=== PATIENT | female | born 1980 | race Caucasian/White ===

== ENCOUNTER 2019-10-29 17:41 | Emergency (ER) | payer SELFPAY | END 2019-10-29 19:31 | disposition home or self-care (01) | PROVIDERS: Family Provider Family Medicine | DX: R07.89 Other chest pain (principal); I73.9 Peripheral vascular disease, unspecified; E11.42 Type 2 diabetes mellitus with diabetic polyneuropathy; F17.210 Nicotine dependence, cigarettes, uncomplicated; Z88.0 Allergy status to penicillin; Z91.040 Latex allergy status; Z89.512 Acquired absence of left leg below knee; I10 Essential (primary) hypertension | CPT/HCPCS: 71045; 73552; 80053; 84484; 85025; 93005; 99283 ==

== ENCOUNTER 2019-11-05 15:37 | Emergency (ER) | payer MEDICAID, SELFPAY ==
[2019-11-05 16:03] VITALS: BP 113/84; PULSE 96; RESP 16; TEMP 36.9; O2SAT 97; BMI 29.1
== END 2019-11-05 19:54 | disposition home or self-care (01) ==
PROVIDERS: Emergency Provider Emergency Medicine; Family Provider Family Medicine
DX: Z53.21 Procedure and treatment not carried out due to patient leaving prior to being seen by health care provider (principal)
CPT/HCPCS: 99281

== ENCOUNTER 2019-11-07 12:34 | Emergency (ER) | payer MEDICAID, SELFPAY ==
[2019-11-07 12:59] VITALS: BP 113/85; PULSE 101; RESP 18; TEMP 36.7; O2SAT 97; BMI 30.7
--- NOTE | 2019-11-07 13:01 | ED_ITS ---
Entered by Maribel Rodriguez, acting as scribe for Jim Cyr DO HPI - Extremity Problem General: Chief complaint: Extremity Injury, Lower Stated complaint: left leg pain Time Seen by Provider: 11/07/19 13:01 Source: patient Mode of arrival: wheelchair Limitations: no limitations History of Present Illness: HPI Narrative: 39 yo f came to the er pov with family for a fall. Onset was 2 days ago. Pt states that her was pushing the wheel chair and she fell out of it. MD Complaint: extremity pain Onset (ago): day(s) (2 days ago) Pain Consistency: constant Location: left Quality: stabbing Radiation: none Relieving factors: nothing Exacerbating factors: nothing Associated symptoms: Reports chest pain; Deny fever(s) or rash Review of Systems Const: Denies: fever Eyes: Denies: change in vision or blurry vision ENMT: Denies: throat pain, oral sores/lesions, dental pain, nasal discharge or nasal congestion Card: Reports: chest pain Resp: Denies: shortness of breath, productive cough, non-productive cough or wheezing GI: Denies: abdominal pain, nausea, vomiting, vomiting blood, coffee grounds in vomit, difficulty swallowing, heartburn/indigestion, diarrhea, constipation, cramping, blood in stool or black tarry stool : Denies: flank pain, painful urination, urinary frequency, urinary urgency, urinary incontinence or blood in urine Musc: Reports: back pain and extremity pain; Denies: neck pain, extremity swelling, joint pain or joint swelling Skin/Breast: Denies: rash Neuro: Denies: headache, numbness in extremities, weakness in extremities, changes in sensation, lack of coordination, difficulty walking, frequent falls, dizziness, vertigo or confusion Psych: Reports: anxiety and depression; Denies: loss of interest, visual hallucinations, auditory hallucinations, suicidal ideation or homicidal ideation Endo: Denies: excessive urination, excessive thirst, tired all the time or cold intolerance [place]/Lymph: Denies: easy bruising, easy bleeding, petechiae, enlarged lymph nodes or tender lymph nodes PFSH ED PFSH: Statuses (acute, chronic, etc) shown below reflect problem list status as previously entered and may not be historically accurate Social History Smoking and tobacco status: current every day smoker Female Reproductive History: Date of last menstrual period: 10/22/19 Physical Exam Const: COMMON NORMALS: average body habitus, oriented x3 and alert GENERAL APPEARANCE: cooperative, comfortable, well kempt and well developed NUTRITIONAL APPEARANCE: obese ORIENTATION/CONSCIOUSNESS: Yes awake, Yes oriented to person and Yes oriented to place HENMT: COMMON NORMALS: normocephalic, head/scalp atraumatic, EAC's normal, TM's normal bilaterally, external nose normal, moist oral mucous membranes and oropharynx normal HEAD & SCALP: normocephalic and atraumatic NOSE: external nose normal EXTERNAL AUDITORY CANAL: EAC's normal TYMPANIC MEMBRANE: TM's normal bilaterally MOUTH: oral and palatal mucosa normal, lip normal and tongue normal THROAT: posterior oropharynx normal and tonsils normal Eye: COMMON NORMALS: PERRL, EOMs intact bilaterally, conjunctivae normal and no scleral icterus CONJUNCTIVA: Yes conjunctivae normal PUPIL: Yes PERRL Neck/C-Spine: COMMON NORMALS: full ROM, no lymphadenopathy, supple, no meningeal signs and thyroid normal THYROID: thyroid normal and asymmetrical Lymph: LYMPHATIC: no lymphadenopathy noted Resp: COMMON NORMALS: normal respiratory effort, no retractions, no use of accessory muscles and clear to auscultation bilaterally AUSCULTATION: clear to auscultation bilaterally Cardio: COMMON NORMALS: regular rate and regular rhythm RATE: regular rate RHYTHM: regular rhythm HEART SOUNDS: no murmurs GI: COMMON NORMALS: normal to inspection, nondistended, normoactive bowel sounds, soft to palpation and no hepatosplenomegaly PALPATION: Yes soft and Yes no hepatosplenomegaly : COMMON NORMALS: Yes no CVA tenderness BLADDER/KIDNEY EXAM: Yes no CVA tenderness Back/Pelvis: COMMON NORMALS: no CVA tenderness LUMBAR SPINE/LOWER BACK: Yes normal to inspection Extremity: COMMON NORMALS: no clubbing, cyanosis or edema, no calf tenderness and no pedal edema NARRATIVE EXTREMITY EXAM: Left leg surgically absent with an [id number] amputation. Examination of the suture line there is no dehiscence wound looks good there is no bruit bruising no abrasions there is no erythema or induration there is no active drainage from the suture line. Neuro: COMMON NORMALS: oriented x3 SENSORIUM/ORIENTATION: Yes alert, Yes oriented to person and Yes oriented to place MENINGEAL SIGNS: Yes no meningeal signs Psych: APPEARANCE: Yes well kempt Skin: COMMON NORMALS: no rashes or lesions noted and skin turgor normal GENERAL SKIN EXAM: no rashes or lesions noted and turgor normal Course Vital Signs: Vital signs: Vital Signs Temperature 98.1 F 11/07/19 12:59 Pulse Rate 87 11/07/19 14:10 Respiratory Rate 20 H 11/07/19 14:10 Blood Pressure 106/76 11/07/19 14:10 Pulse Oximetry 96 11/07/19 14:10 Discharge Plan Discharge Patient Disposition: Home, Self-Care Clinical Impression: Pain of amputation stump of left lower extremity, Hx of AKA (above knee amputation) Condition: Stable Prescriptions: New tramadol 50 mg tablet 50 mg PO Q8H PRN (Reason: pain) Qty: 10 RF: 0 Referrals: Tina Hernandez MD [Family Provider] - Discharge Diet: Usual diet Discharge Activity: Increase activity as tolerated Activity Restrictions/Additional Instructions: Follow up with your pain clinic for further pain medicaitons. Discharge Date/Time: 11/07/19 14:11 Coding Level of Care Code ED Seconds Inspector for Chg Fwd Exam Problem Focused The documentation recorded by the Michael billings Stephanie Lyn, accurately reflects the service I personally performed and the decisions made by Klarissa goldsmith Curtis L, DO Nov 07, 2019 12:34
--- NOTE | 2019-11-07 13:27 | XR_ITS ---
WS: [id number] Left thigh, 2 views of the distal femur 11/07/2019 Clinical Data: pain at stump after reported fall Comparison: Left thigh and femur, 10/29/2019 Findings: The patient has had an AK amputation. There is soft tissue edema beneath the stump. There is an area of low density inferior to the distal femoral stump which could represent a fluid collection. Possible fluid collection in soft tissue inferior to distal amputation site of the left femur. XR/XR knee LT -2V [id number] Impression:
[2019-11-07 13:38] VITALS: BP 114/83; BP 142/108; O2SAT 96; O2SAT 97
[2019-11-07 13:56] VITALS: RESP 16
[2019-11-07] MEDS: morphine 4 mg/mL SDV 1 mL 2 MG IVP (13:56)
[2019-11-07 14:10] VITALS: BP 106/76; PULSE 87; RESP 20; O2SAT 96
== END 2019-11-07 14:11 | disposition home or self-care (01) ==
PROVIDERS: Emergency Provider Family Medicine; Family Provider Family Medicine
DX: M79.605 Pain in left leg (principal); Z89.612 Acquired absence of left leg above knee; F17.210 Nicotine dependence, cigarettes, uncomplicated
CPT/HCPCS: 73560; 96375; 99281; J2270

== ENCOUNTER → 2019-11-21 13:44 | Outpatient (BNVA) | payer MEDICAID, SELFPAY | PROVIDERS: Family Provider Family Medicine; Visit Provider Anesthesiology | DX: G89.4 Chronic pain syndrome (principal); M54.5 Low back pain; M79.651 Pain in right thigh; M79.652 Pain in left thigh; M25.569 Pain in unspecified knee; S78.112A Complete traumatic amputation at level between left hip and knee, initial encounter; X58.XXXA Exposure to other specified factors, initial encounter; F17.210 Nicotine dependence, cigarettes, uncomplicated; Z79.891 Long term (current) use of opiate analgesic | CPT/HCPCS: 99204 ==

== ENCOUNTER 2019-12-05 18:02 | Emergency (ER) | payer MEDICAID, SELFPAY ==
--- NOTE | 2019-12-05 18:06 | XR_ITS ---
WS: [id number] Portable AP upright chest, 12/05/2019 Clinical Data: cp Comparison: Portable chest, 10/29/2019. Findings: No nodules, masses or effusions are seen. The heart is slightly enlarged. The pulmonary vas cularity is not increased. No pneumonia or pneumothorax is seen. XR/XR chest 1V portable [id number] Impression: Mild cardiomegaly.
--- NOTE | 2019-12-05 18:07 | ECG_ITS ---
Measurements Intervals [place] Rate: 97 P: 44 [place]: 163 QRS: 60 QRSD: 101 T: 122 QT: 373 QTc: 475 SINUS RHYTHM POSSIBLE LEFT ATRIAL ENLARGEMENT [-0.1mV P WAVE IN V1/V2] NONSPECIFIC ST & T-WAVE ABNORMALITY Compared to ECG 10/29/2019 17:52:13 Sinus tachycardia no longer present Possible ischemia no longer present T-wave abnormality still present Electronically Signed On 12-06-2019 22:14:37 DISABILITY COUNSELOR by Diamond Brenner M.D. [email or web address]
[2019-12-05 18:25] VITALS: BP 112/80; PULSE 102; RESP 18; TEMP 36.5; O2SAT 100; BMI 29.1
--- NOTE | 2019-12-05 18:26 | ED_ITS ---
Entered by Priyanka Li, acting as scribe for Jack Cotton MD HPI - Chest Pain General: Chief Complaint: Chest Pain Stated Complaint: CHEST PAIN Time Seen by Provider: 12/05/19 18:26 Source: patient and RN notes reviewed Mode of arrival: ambulatory Limitations: no limitations History of Present Illness: HPI narrative: 39 yo female presents to ED with complaints of chest pain. The patient states her chest hurts. She said she has a cough which makes her chest hurt. She said her chest pain began a week ago. MD complaint: chest pain Pertinent past history: other (healing from broken ribs) Onset (ago): week(s) (1) Timing of current episode: episodic Prior episodes: Yes Onset: other (coughing) Pain location: substernal Pain radiation: none Severity: moderate Quality: aching Relieving factors: nothing Exacerbating factors: other (coughing) Context: recent illness Associated symptoms: Reports no associated symptoms; Deny abdominal pain, dyspnea, fever(s), nausea or vomiting Treatment prior to arrival: none Risk Factors: Coronary artery disease risk factors: none Thoracic aortic dissection risk factors: none Related Data: On Oral Contraceptives: No Review of Systems Const: Denies: fever, chills, body aches or change in appetite Eyes: Denies: blurry vision or eye discomfort ENMT: Denies: throat pain or dental pain Resp: Denies: shortness of breath GI: Denies: abdominal pain, nausea, vomiting or diarrhea : Denies: painful urination Musc: Denies: neck pain or back pain Skin/Breast: Denies: rash Neuro: Denies: headache Psych: Denies: depression [place]/Lymph: Denies: easy bruising All/Imm: Denies: hives PFSH ED PFSH: Statuses (acute, chronic, etc) shown below reflect problem list status as previously entered and may not be historically accurate Medical History (Updated 12/05/19 @ 18:56 by Jack Cotton MD) 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) Chronic pain syndrome (Chronic) Current every day smoker (Chronic) Opioid contract exists (Chronic) Family History (Updated 11/21/19 @ 14:34 by Lisa Purdy LPN) Other Diabetes Social History (Updated 11/21/19 @ 14:35 by Lisa Purdy LPN) Smoking and tobacco status: current every day smoker cigarettes Packs smoked per day: 0.5 Alcohol intake: never Female Reproductive History: Date of last menstrual period: 10/22/19 Physical Exam Const: COMMON NORMALS: no apparent distress, oriented x3 and healthy appearing HENMT: COMMON NORMALS: normocephalic and head/scalp atraumatic HEAD & SCALP: normocephalic and atraumatic Eye: COMMON NORMALS: PERRL and EOMs intact bilaterally PUPIL: Yes PERRL Neck/C-Spine: COMMON NORMALS: full ROM and supple Chest: COMMONS NORMALS: inspection of chest normal OTHER: point tender to chest Resp: COMMON NORMALS: normal respiratory effort, no retractions, no use of accessory muscles and clear to auscultation bilaterally AUSCULTATION: clear to auscultation bilaterally Cardio: COMMON NORMALS: regular rate, regular rhythm and no murmurs RATE: regular rate RHYTHM: regular rhythm GI: COMMON NORMALS: normal to inspection, nondistended, normoactive bowel sounds, soft to palpation, non-tender and no masses PALPATION: Yes soft Extremity: COMMON NORMALS: normal to inspection and full ROM Neuro: COMMON NORMALS: oriented x3, moves all extremities and no focal motor deficits Psych: COMMON NORMALS: mental status grossly normal, thought process normal and cooperative THOUGHT PROCESS: normal thought process Skin: COMMON NORMALS: no rashes or lesions noted and no wounds GENERAL SKIN EXAM: no rashes or lesions noted Course Vital Signs: Vital signs: Vital Signs Temperature 97.7 F 12/05/19 18:25 Pulse Rate 99 12/05/19 19:02 Respiratory Rate 19 H 12/05/19 19:02 Blood Pressure 129/85 12/05/19 19:02 Pulse Oximetry 92 12/05/19 19:02 MDM - Chest Pain MDM Narrative: Medical decision making narrative: Patient presents here with chest pain with a cough with likely bronchitis and chest wall pain. She denied any blood work. We will start her on Keflex for possible bronchitis. Patient given steroid shot 2. She is stable for discharge and return if worsening. Imaging Data^: CXR: Attestation: I personally reviewed and interpreted this imaging study as follows: My impression: no acute abnormality EKG Data^: EKG 1: Attestation: I personally reviewed and interpreted this EKG as follows: EKG interpretation date: 12/05/19 EKG interpretation time: 18:40 Interpretation: nsr hr [address] or t wave abnormalities qrs 101 qtc 472 Discharge Plan Discharge Patient Disposition: Home, Self-Care Clinical Impression: Atypical chest pain Condition: Stable Prescriptions: New Keflex 500 mg capsule 500 mg PO Q6H 7 Days Qty: 28 RF: 0 No Action cyclobenzaprine 10 mg tablet 10 mg PO TID PRNRF: 0 gabapentin 300 mg capsule 300 mg PO TID RF: 0 alprazolam [Xanax] 1 mg tablet 1 mg PO TID PRNRF: 0 clopidogrel [Plavix] 75 mg tablet 75 mg PO QDAY RF: 0 Lantus Solostar U-100 Insulin 100 unit/mL (3 mL) insulin pen 75 unit SUBCUT .BEDTIME RF: 0 Novolog Flexpen U-100 Insulin 100 unit/mL (3 mL) insulin pen See Rx Instructions SUBCUT TID RF: 0 Combivent Respimat 20-100 mcg/actuation mist 2 puff INHALATION Q6H PRNRF: 0 albuterol sulfate 90 mcg/actuation aerosol powdr breath activated 2 inh INHALATION Q6H PRNRF: 0 tramadol 50 mg tablet 50 mg PO TID PRN (Reason: pain) 30 Days Qty: 90 RF: 0 hydrocodone-acetaminophen 7.5-325 mg tablet 1 tab PO Q6H PRN (Reason: pain) 30 Days Qty: 120 RF: 0 tramadol 50 mg tablet 50 mg PO Q8H PRN (Reason: pain) Qty: 10 RF: 0 Discharge Orders: Discharge Order (Routine); Ordered 12/05/19 Ordered By: Jack Cotton Referrals: NOT ON FILE,DOCTOR [Primary Care Provider] - Tina Hernandez MD [Family Provider] - 4-7 days Discharge Diet: Advance as tolerated Discharge Activity: Resume usual activity Patient Instructions: Chest Pain - Chest Wall Discharge Date/Time: 12/05/19 19:13 Coding Level of Care Code ED Optoelectronics Engineer for Chg Fwd Exam Problem Focused The documentation recorded by the Guillermo billings Valerie R, accurately reflects the service I personally performed and the decisions made by Yury goldsmith Korby, MD Dec 05, 2019 18:02
[2019-12-05] MEDS: HYDROcodone-acetaminophen 7.5-325 mg Tablet 1 TAB PO (18:45)
[2019-12-05 19:02] VITALS: BP 129/85; PULSE 99; RESP 19; O2SAT 92
[2019-12-05] MEDS: dexamethasone 10 mg/mL INJ IM (19:07)
--- NOTE | 2019-12-05 19:13 | PC.NURSE ---
[facility] to arrange for tranportation.
== END 2019-12-05 19:13 | disposition home or self-care (01) ==
PROVIDERS: Emergency Provider Emergency Medicine; Family Provider Family Medicine
DX: R07.89 Other chest pain (principal); G89.4 Chronic pain syndrome; F17.210 Nicotine dependence, cigarettes, uncomplicated; Z79.891 Long term (current) use of opiate analgesic
CPT/HCPCS: 71045; 93005; 96372; 99281; 99283; J1100

== ENCOUNTER → 2019-12-19 12:47 | Outpatient (BNVA) | payer MEDICAID, SELFPAY | PROVIDERS: Family Provider Family Medicine; Visit Provider Anesthesiology | DX: G89.4 Chronic pain syndrome (principal); M54.5 Low back pain; S78.112A Complete traumatic amputation at level between left hip and knee, initial encounter; X58.XXXA Exposure to other specified factors, initial encounter; F17.210 Nicotine dependence, cigarettes, uncomplicated; Z79.891 Long term (current) use of opiate analgesic | CPT/HCPCS: 99214 ==

== ENCOUNTER 2020-01-12 16:29 | Emergency (ER) | payer MEDICAID, SELFPAY ==
[2020-01-12 16:56] VITALS: BP 125/99; PULSE 108; RESP 16; TEMP 36.8; O2SAT 97; BMI 30.7
--- NOTE | 2020-01-12 17:05 | ED_ITS ---
Entered by Maribel Rodriguez, acting as scribe for Jim Cyr DO HPI - Extremity Problem General: Chief complaint: Extremity Problem,Nontraumatic Stated complaint: hip and leg pain Time Seen by Provider: 01/12/20 17:04 Source: patient Mode of arrival: wheelchair Limitations: no limitations History of Present Illness: HPI Narrative: 39 yo f came to the er pov for hip and leg pain. Onset was today. Pt states that she has been having some right hip and leg has been in pain and has been swelling. Patient has severe peripheral vascular disease previously had the left leg amputated ultimately ended up with an [id number] amputation. Now she currently has a ulcer on the pad of the right great toe which she has been seeing wound care for. Patient is extremely poor blood sugar control. Also has a strong history of noncompliance in the past. Patient denies fever sweats or chills. MD Complaint: extremity pain and extremity swelling Pain Consistency: constant Location: right Quality: aching Relieving factors: nothing Exacerbating factors: nothing Associated symptoms: Reports no associated symptoms; Deny chest pain, fever(s) or rash Review of Systems General: Reports: other (negative unless marked) Const: Denies: fever, chills, body aches, change in appetite, fatigue or malaise ENMT: Denies: throat pain, ear pain, nasal discharge or nasal congestion Card: Denies: chest pain, edema, shortness of breath on exertion or shortness of breath when lying down Resp: Denies: shortness of breath, productive cough or non-productive cough GI: Denies: abdominal pain, nausea, vomiting, vomiting blood, coffee grounds in vomit, diarrhea, constipation, bloating, blood in stool or black tarry stool : Denies: flank pain, difficulty urinating, painful urination, urinary frequency or urinary urgency Musc: Reports: redness Skin/Breast: Denies: rash or itching PFSH ED PFSH: Medical History Above knee amputation of left lower extremity Chronic pain syndrome Current every day smoker Encounter for long-term use of opiate analgesic Opioid contract exists Family History Other Diabetes Social History Smoking and tobacco status: current every day smoker cigarettes Packs smoked per day: 0.5 Alcohol intake: never Female Reproductive History: Date of last menstrual period: 10/22/19 Physical Exam Const: COMMON NORMALS: average body habitus, oriented x3 and alert NUTRITIONAL APPEARANCE: obese ORIENTATION/CONSCIOUSNESS: Yes awake, Yes tabitha ented to person and Yes oriented to place HENMT: COMMON NORMALS: normocephalic, head/scalp atraumatic, EAC's normal, TM's normal bilaterally, external nose normal, moist oral mucous membranes and oropharynx normal HEAD & SCALP: normocephalic and atraumatic NOSE: exter nal nose normal EXTERNAL AUDITORY CANAL: EAC's normal TYMPANIC MEMBRANE: TM's normal bilaterally MOUTH: oral and palatal mucosa normal, lip normal and tongue normal THROAT: posterior oropharynx normal and tonsils normal Eye: COMMON NORMALS: PERRL, EOMs intact bilaterally, conjunctivae normal and no scleral icterus CONJUNCTIVA: Yes conjunctivae normal PUPIL: Yes PERRL Neck/C-Spine: COMMON NORMALS: full ROM, no lymphadenopathy, supple, no meningeal signs and thyroid normal THYROID: thyroid normal and asymmetrical Lymph: LYMPHATIC: no lymphadenopathy noted Resp: COMMON NORMALS: normal respiratory effort, no retractions, no use of accessory muscles and clear to auscultation bilaterally AUSCULTATION: clear to auscultation bilaterally Cardio: COMMON NORMALS: regular rate and regular rhythm RATE: regular rate RHYTHM: regular rhythm HEART SOUNDS: no murmurs GI: COMMON NORMALS: normal to inspection, nondistended, normoactive bowel sounds, soft to palpation and no hepatosplenomegaly PALPATION: Yes soft and Yes no hepatosplenomegaly : COMMON NORMALS: Yes no CVA tenderness BLADDER/KIDNEY EXAM: Yes no CVA tenderness Back/Pelvis: COMMON NORMALS: no CVA tenderness LUMBAR SPINE/LOWER BACK: Yes normal to inspection Extremity: GENERAL: Yes edema (+1 right leg) RIGHT LOWER EXTREMITY: Yes f oot & digits (No active drainage dry eschar in place) Right foot and digits: Yes inspection (3mm diabetic sore) OTHER: Negative Homans sign. Neuro: COMMON NORMALS: oriented x3 SENSORIUM/ORIENTATION: Yes alert, Yes oriented to person and Yes oriented to place MENINGEAL SIGNS: Yes no meningeal signs Course ED course: Patient is pretty severe hyperglycemia was given insulin. She was rather anxious to leave on exam and is no evidence of DVT at this time. Go ahead and start her on Lasix gave her some IM Lasix will discharge home with p.o. Lasix follow-up with wound care as soon as she is able. Return if has f urther problems. Vital Signs: Vital signs: Vital Signs Temperature 98.2 F 01/12/20 16:56 Pulse Rate 108 H 01/12/20 16:56 Respiratory Rate 16 01/12/20 19:40 Blood Pressure 125/99 01/12/20 16:56 Pulse Oximetry 97 01/12/20 16:56 MDM - Extremity (Nontraumatic) Lab Data: Labs: Lab Results 01/12/20 01/12/20 01/12/20 Range/Units 17:30 17:30 17:30 WBC 6.4 (4.0-10.0) 10^3/ uL RBC 5.70 H (4.1-5.3) 10^6/u L Hgb 14.8 (11.5-15.3) g/dL Hct 44.5 (37.0-47.0) % MCV 78.1 L (81-99) fL MCH 26.0 L (28.0-34.0) pg MCHC 33.3 (30.0-36.0) g/dL RDW 13.8 (12.1-15.1) % Plt Count 276 (130-400) 10^3/c mm MPV 10.2 (7.4-10.4) fL Neut % (Auto) 59.0 % Lymph % (Auto) 32.8 % [place] % (Auto) 5.0 % Eos % (Auto) 2.0 % Baso % (Auto) 0.6 % Neut # (Auto) 3.8 (1.8-7.7) 10^3/u L Lymph # (Auto) 2.1 (0.8-4.8) 10^3/u L [place] # (Auto) 0.3 (0.2-0.9) 10^3/u L Eos # (Auto) 0.1 (0.0-0.8) 10^3/u L Baso # (Auto) 0.0 (0.0-0.1) 10^3/u L Nucleated RBC % (a uto) 0 % Nucleated RBCs # 0.0 /100WBC ESR 19 H (0-15) mm/hr Sodium 134 L (136-145) mmol/L Potassium 4.4 (3.5-5.1) mmol/L Chloride 97 L (98-107) mmol/L Carbon Dioxide 26 (22-29) mmol/L Anion Gap 15.4 (5-19) BUN 8 (6-20) mg/dL Creatinine 0.5 (0.5-0.9) mg/dL GFR Calculation 137.4 H (90-130) mL/min Glucose 508 H* (65-115) mg/dL Calculated Osmolal ity 297 H (285-295) mOsm/k g Calcium 9.5 (8.5-10.5) mg/dL Total Bilirubin 0.2 (0.15-1.2) mg/dL AST 19 (0-32) U/L ALT 20 (0-33) U/L Alkaline Phosphata se 113 H (35-105) IU/L C-Reactive Protein 15.5 H (0.0-4.9) mg/L Total Protein 6.9 (6.6-8.7) g/dL Albumin 3.6 (3.5-5.2) g/dL Globulin 3.3 (1.3-4.6) g/dL Imaging Data^: Other Xray: Radiologist's impression: [address] [address] XRay Report Signed Patient: Alina Hewitt #: [id number] : 1980Acct#:[id number] Age/Sex: 39 / FADM Date: 01/12/20 Loc: ERRoom/Bed: Attending Dr: Ordering Provider/Ordering MD: Jim Cyr DO Date of Service: 01/12/20 Procedure(s): XR foot RT min 3V* [id number] Accession Number(s): [id number] Report Number: [id number] PROCEDURE INFORMATION: Exam: XR Right Foot Complete Exam date and time: 01/12/2020 5:16 PM Age: 39 years old Clinical indication: Pain; Foot; Right; Additional info: Diabetic pressure ulcer R great toe TECHNIQUE: Imaging protocol: XR Right foot. Views: 3 or more views. COMPARISON: No relevant prior studies available. FINDINGS: Bones/joints: Normal. Soft tissues: There is a 4.7 mm metallic wire in the dorsal aspect of the foot. This density overlies the mid shaft 3rd metatarsal. This finding is visible on the lateral view measuring 6.8 mm. XR/XR foot RT min 3V* [id number] IMPRESSION: No acute bone abnormality. Metallic wire in the soft tissues in the of foot as described Dictated By:Rupert Chen Signed By:Amalia Chenigned Date/Time:01/12/201756 DD/ 55 Discharge Plan Discharge Patient Disposition: Home, Self-Care Clinical Impression: Lower extremity edema, Diabetic foot ulcer Condition: Stable Prescriptions: New Lasix 20 mg tablet 20 mg PO DAILY Qty: 10 RF: 0 No Action cyclobenzaprine 10 mg tablet 10 mg PO TID PRNRF: 0 alprazolam [Xanax] 1 mg tablet 1 mg PO TID PRNRF: 0 clopidogrel [Plavix] 75 mg tablet 75 mg PO QDAY RF: 0 Lantus Solostar U-100 Insulin 100 unit/mL (3 mL) insulin pen 75 unit SUBCUT .BEDTIME RF: 0 Novolog Flexpen U-100 Insulin 100 unit/mL (3 mL) insulin pen See Rx Instructions SUBCUT TID RF: 0 Combivent Respimat 20-100 mcg/actuation mist 2 puff INHALATION Q6H PRNRF: 0 albuterol sulfate 90 mcg/actuation aerosol powdr breath activated 2 inh INHALATION Q6H PRNRF: 0 tramadol 50 mg tablet 50 mg PO TID PRN (Reason: pain) 30 Days Qty: 90 RF: 0 gabapentin 300 mg capsule 300 mg PO TID 30 Days Qty: 90 RF: 0 hydrocodone-acetaminophen 7.5-325 mg tablet 1 tab PO QID PRN (Reason: pain) 30 Days Qty: 120 RF: 0 Discharge Orders: Discharge Order (Routine); Ordered 01/12/20 Ordered By: Jim Cyr Referrals: Tina Hernandez MD [Family Provider] - Discharge Diet: Usual diet Discharge Activity: Increase activity as tolerated Activity Restrictions/Additional Instructions: Follow-up with your doctor or wound care this coming week for the wound on the bottom of your right great toe Discharge Date/Time: 01/12/20 19:40 Coding Level of Care Code ED Rigging Supervisor for Chg Fwd Exam Comprehensive The documentation recorded by the Michael billings Stephanie Lyn, accurately reflects the service I personally performed and the decisions made by , Jim Cyr, Jan 12, 2020 16:29
--- NOTE | 2020-01-12 17:14 | XRR_ITS ---
PROCEDURE INFORMATION: Exam: XR Right Foot Complete Exam date and time: 01/12/2020 5:16 PM Age: 39 years old Clinical indication: Pain; Foot; Right; Additional info: Diabetic pressure ulcer R great toe TECHNIQUE: Imaging protocol: XR Right foot. Views: 3 or more views. COMPARISON: No relevant prior studies available. FINDINGS: Bones/joints: Normal. Soft tissues: There is a 4.7 mm metallic wire in the dorsal aspect of the foot. This density overlies the mid shaft 3rd metatarsal. This finding is visible on the lateral view measuring 6.8 mm. XR/XR foot RT min 3V* [id number] IMPRESSION: No acute bone abnormality. Metallic wire in the soft tissues in the of foot as described
[2020-01-12 17:36] LABS: Basophils % 0.6 %; Eosinophils # 0.1 10^3/uL (0.0-0.8); Hematocrit 44.5 % (37.0-47.0); Hemoglobin 14.8 g/dL (11.5-15.3); Lymphocytes # 2.1 10^3/uL (0.8-4.8); Lymphocytes % 32.8 %; Mean Corpuscular HGB Conc 33.3 g/dL (30.0-36.0); Mean Corpuscular Volume 78.1 fL (81-99); Mean Platelet Volume 10.2 fL (7.4-10.4); Monocytes # 0.3 10^3/uL (0.2-0.9); Neutrophils # 3.8 10^3/uL (1.8-7.7); Nucleated Red Blood Cells % 0 %; Platelet Count 276 10^3/cmm (130-400); Red Cell Distribution Width 13.8 % (12.1-15.1); White Blood Count 6.4 10^3/uL (4.0-10.0)
[2020-01-12 17:49] LABS: Alanine Aminotransferase 20 U/L (0-33); Albumin Level 3.6 g/dL (3.5-5.2); Alkaline Phosphatase 113 IU/L (35-105); Anion Gap 15.4 (5-19); Aspartate Amino Transferase 19 U/L (0-32); Blood Urea Nitrogen 8 mg/dL (6-20); C Reactive Protein 15.5 mg/L (0.0-4.9); Calcium 9.5 mg/dL (8.5-10.5); Carbon Dioxide 26 mmol/L (22-29); Chloride 97 mmol/L (98-107); Globulin 3.3 g/dL (1.3-4.6); Glomerular Filtration Rate 137.4 mL/min (90-130); Osmolality Calculated 297 mOsm/kg (285-295); Potassium 4.4 mmol/L (3.5-5.1); Sodium 134 mmol/L (136-145); Total Bilirubin 0.2 mg/dL (0.15-1.2); Total Protein 6.9 g/dL (6.6-8.7)
[2020-01-12 18:08] LABS: Glucose 508 mg/dL (65-115)
[2020-01-12 18:37] LABS: Erythrocyte Sedimentation Rate 19 mm/hr (0-15)
--- NOTE | 2020-01-12 19:01 | PC.NURSE ---
report received from charge nurse due to day shift nurse not wanting to give report to night nurse.
--- NOTE | 2020-01-12 19:01 | PC.NURSE ---
report received from charge nurse due to day shift nurse not wanting to give report to night nurse.
[2020-01-12 19:40] VITALS: RESP 16
--- NOTE | 2020-01-12 19:41 | PC.NURSE ---
patient refused insulin from nurse
== END 2020-01-12 19:40 | disposition home or self-care (01) ==
PROVIDERS: Emergency Provider Family Medicine; Family Provider Family Medicine
DX: R60.0 Localized edema (principal); E11.621 Type 2 diabetes mellitus with foot ulcer; E11.51 Type 2 diabetes mellitus with diabetic peripheral angiopathy without gangrene; L97.519 Non-pressure chronic ulcer of other part of right foot with unspecified severity; E11.65 Type 2 diabetes mellitus with hyperglycemia; E66.9 Obesity, unspecified; Z68.30 Body mass index [BMI] 30.0-30.9, adult; F17.210 Nicotine dependence, cigarettes, uncomplicated; Z79.4 Long term (current) use of insulin; Z89.612 Acquired absence of left leg above knee
CPT/HCPCS: 12345; 73630; 80053; 85025; 85651; 86140; 99281; 99283

== ENCOUNTER → 2020-01-16 12:53 | Outpatient (BNVA) | payer MEDICAID, SELFPAY | PROVIDERS: Family Provider Family Medicine; Visit Provider Anesthesiology | DX: G89.4 Chronic pain syndrome (principal); S78.112A Complete traumatic amputation at level between left hip and knee, initial encounter; X58.XXXA Exposure to other specified factors, initial encounter; F17.210 Nicotine dependence, cigarettes, uncomplicated; Z79.891 Long term (current) use of opiate analgesic | CPT/HCPCS: 99213; 99214 ==

== ENCOUNTER 2020-03-12 13:59 | Emergency (ER) | payer MEDICAID, SELFPAY ==
[2020-03-12 14:05] VITALS: BP 131/82; PULSE 101; RESP 17; TEMP 36.4; O2SAT 97; BMI 29.1
--- NOTE | 2020-03-12 16:26 | ED_ITS ---
HPI - Extremity Problem General: Chief complaint: Extremity Injury, Lower Stated complaint: leg pain Time Seen by Provider: 03/12/20 16:26 History of Present Illness: HPI Narrative: Patient is a 39-year-old female who comes to the ED with right lower extremity pain and swelling. Patient has a past medical history of osteomyelitis with left leg [id number] amputation. Pain and swelling started about a week ago. She denies any injury to cause pain and swelling. She has a couple open sores that drained pus that are located on the anterior side of the right tibia. She does not know how the sores started but says they are painful. She says her pain in her leg is rated a 9 out of 10. Denies any fever or chills, nausea/vomiting, bladder or bowel symptoms. Associated symptoms: Deny chest pain, fever(s) or rash Review of Systems Const: Denies: fever(s), chills or fatigue Eyes: Denies: change in vision or eye discomfort ENMT: Denies: throat pain, odynophagia, nasal discharge or nasal congestion Card: Denies: chest pain, palpitations, edema, swelling of feet/ankles, dyspnea on exertion or orthopnea Resp: Denies: dyspnea, productive cough or non-productive cough GI: Denies: abdominal pain, nausea, vomiting, diarrhea, constipation or hematochezia : Denies: flank pain, dysuria or hematuria Musc: Reports: extremity pain (Right lower leg) and extremity swelling (right lower leg); Denies: neck pain or back pain Skin/Breast: Denies: rash or new lesions Neuro: Denies: headache(s), numbness in extremities or weakness in extremities [facility] ED PFSH: Medical History Above knee amputation of left lower extremity Chronic pain syndrome Current every day smoker Encounter for long-term use of opiate analgesic Opioid contract exists Family History Other Diabetes Social History Smoking and tobacco status: current every day smoker cigarettes Packs smoked per day: 0.5 [ Other cigarette details: 1 pck every 2-3 days-on chantix ] Alcohol intake: never Female Reproductive History: Date of last menstrual period: 12/24/19 Physical Exam Const: COMMON NORMALS: patient oriented x3 HENMT: COMMON NORMALS: normocephalic HEAD & SCALP: normocephalic MOUTH: Normal oral and palatal mucosa present THROAT: posterior oropharynx normal and uvula midline Neck/C-Spine: COMMON NORMALS: supple GENERAL: Yes normal visual inspection Resp: COMMON NORMALS: normal respiratory effort, No retractions, No use of accessory muscles and clear to auscultation bilaterally AUSCULTATION: clear to auscultation bilaterally Cardio: COMMON NORMALS: regular rate, regular rhythm, S1 normal heart sound present, S2 normal heart sound present, No gallops present (Cardio), No clicks present (Cardio), No murmurs present (Cardio) and Peripheral pulses 2+ throughout RATE: regular rate RHYTHM: regular rhythm HEART SOUNDS: S1 normal heart sound present and S2 normal heart sound present PERIPHERAL PULSES: Peripheral pulses 2+ throughout GI: COMMON NORMALS: Normal to inspection, nondistended, normoactive bowel sounds present, Soft to palpation, non-tender and no masses PALPATION: Yes Soft to palpation : COMMON NORMALS: Yes no CVA tenderness BLADDER/KIDNEY EXAM: Yes no CVA tenderness Back/Pelvis: COMMON NORMALS: no CVA tenderness Extremity: GENERAL: Yes amputation (Left leg above the knee) and Yes edema (Right extremity) RIGHT LOWER EXTREMITY: Yes lower leg Right lower leg: Yes inspection (erythema, warmth with open sores on anterior sanz. purulent drainage.), Yes palpation (tender upon palpation) and Yes neurovascular exam (intact) Neuro: COMMON NORMALS: patient oriented x3 and moves all extremities Skin: LESIONS: lesion noted (See Right Lower Extremity section for details.) OTHER: Patient has open sores with purulent drainage, tenderness, erythema and warmth on anterior aspect of sanz. Course Vital Signs: Vital signs: Vital Signs Temperature 97.6 F 03/12/20 14:05 Pulse Rate 101 H 03/12/20 14:05 Respiratory Rate 17 03/12/20 14:05 Blood Pressure 131/82 03/12/20 14:05 Pulse Oximetry 97 03/12/20 14:05 MDM - Extremity (Nontraumatic) MDM Narrative: Medical decision making narrative: Pt left AMA. She left before I was able to get labs, diagnosis and discharge plan worked up. Discharge Plan Discharge Patient Disposition: Left Against Medical Advice Prescriptions: No Action Levemir FlexTouch U-100 Insuln 100 unit/mL (3 mL) insulin pen 100 unit SUBCUT DAILY RF: 0 Toujeo Max U-300 SoloStar 300 unit/mL (3 mL) insulin pen 30 unit SUBCUT DAILY RF: 0 Chantix 1 mg tablet 1 mg PO ONCE RF: 0 cyclobenzaprine 10 mg tablet 10 mg PO TID PRNRF: 0 clopidogrel [Plavix] 75 mg tablet 75 mg PO QDAY RF: 0 Combivent Respimat 20-100 mcg/actuation mist 2 puff INHALATION Q6H PRNRF: 0 albuterol sulfate 90 mcg/actuation aerosol powdr breath activated 2 inh INHALATION Q6H PRNRF: 0 hydrocodone-acetaminophen 7.5-325 mg tablet 1 tab PO QID PRN (Reason: pain) 30 Days Qty: 120 RF: 0 tramadol 50 mg tablet 50 mg PO TID PRN (Reason: pain) 30 Days Qty: 90 RF: 1 gabapentin 600 mg tablet 600 mg PO TID PRN (Reason: pain) 30 Days Qty: 90 RF: 1 Lasix 20 mg tablet 20 mg PO DAILY Qty: 10 RF: 0 Referrals: Tina Hernandez MD [Primary Care Provider] - Discharge Date/Time: 03/12/20 17:00 Coding Level of Care Code ED [employer] for [employer]g Fwd Exam Comprehensive
--- NOTE | 2020-03-12 17:03 | PC.NURSE ---
nurse went into room to assess pt and tell her i'm bringing her pain medication. Pt not found in room
== END 2020-03-12 17:00 | disposition left against medical advice (07) ==
PROVIDERS: Emergency Provider Physician Assistant; PCP Family Medicine
DX: M79.604 Pain in right leg (principal); Z53.21 Procedure and treatment not carried out due to patient leaving prior to being seen by health care provider; Z79.4 Long term (current) use of insulin; Z79.02 Long term (current) use of antithrombotics/antiplatelets; F17.210 Nicotine dependence, cigarettes, uncomplicated
CPT/HCPCS: 12345; 99281

== ENCOUNTER → 2020-03-17 09:58 | Outpatient (BNVA) | payer MEDICAID, SELFPAY | PROVIDERS: PCP Family Medicine; Visit Provider Anesthesiology | DX: G89.4 Chronic pain syndrome (principal); M54.9 Dorsalgia, unspecified; S78.112A Complete traumatic amputation at level between left hip and knee, initial encounter; X58.XXXA Exposure to other specified factors, initial encounter; F17.210 Nicotine dependence, cigarettes, uncomplicated; Z79.891 Long term (current) use of opiate analgesic; Z71.6 Tobacco abuse counseling | CPT/HCPCS: 99214 ==

== ENCOUNTER → 2020-04-07 10:09 | Outpatient (BNVA) | payer MEDICAID, SELFPAY | PROVIDERS: PCP Family Medicine; Visit Provider Anesthesiology | DX: G89.4 Chronic pain syndrome (principal); M54.9 Dorsalgia, unspecified; S78.112A Complete traumatic amputation at level between left hip and knee, initial encounter; X58.XXXA Exposure to other specified factors, initial encounter; F17.210 Nicotine dependence, cigarettes, uncomplicated; Z79.891 Long term (current) use of opiate analgesic; Z71.6 Tobacco abuse counseling | CPT/HCPCS: 99214 ==

== ENCOUNTER 2020-04-20 00:30 | Emergency (ER) | payer MEDICAID, SELFPAY ==
[2020-04-20 00:40] VITALS: BP 127/83; PULSE 97; RESP 16; TEMP 36.8; O2SAT 97; BMI 29.1
--- NOTE | 2020-04-29 15:23 | DCPLANNER ---
Patient did not attend appointment scheduled for 04.21.20 with Wound Care.
== END 2020-04-20 01:37 ==
PROVIDERS: Emergency Provider Emergency Medicine; PCP Family Medicine
DX: Z53.21 Procedure and treatment not carried out due to patient leaving prior to being seen by health care provider (principal)
CPT/HCPCS: 99281

== ENCOUNTER 2020-04-20 01:42 | Emergency (ER) | payer MEDICAID, SELFPAY ==
[2020-04-20] VITALS (10 sets, daily range): BP systolic 129–138; BP diastolic 75–87; PULSE 97; RESP 16; TEMP 36.8; O2SAT 96–99; BMI 29.1
--- NOTE | 2020-04-20 02:06 | W.ED.EXTPRO ---
HPI - Extremity Problem General: Chief complaint: Extremity Injury, Lower Stated complaint: leg pain Time Seen by Provider: 04/20/20 01:49 History of Present Illness: HPI Narrative: Patient is a 39-year-old female who comes to the ED with right lower extremity pain and possible infection. Patient has a past medical history of diabetes and diabetic neuropathy. She also has an [id number] amputation of the left lower extremity due to osteomyelitis. Patient's right leg has multiple open sores on the front of her sanz and patient also has an ulcer on heel of foot. Patient says both started about a week ago. She says the wounds on the sanz started as a little blister that popped and she keeps having more popping up every couple days. She says that they use clear fluid. Patient also says her ulcer on heel right foot started about a week ago as well and looked just like a blister and then it popped and then the skin became dark. She rates her current right leg pain a 7 out of 10. Patient has hydrocodone 7.5 mg and 50 mg of tramadol that she takes for pain. She says that those have not helped her pain. Associated symptoms: Deny chest pain, fever(s) or rash Review of Systems Const: Denies: fever(s), chills or fatigue Eyes: Denies: change in vision or eye discomfort ENMT: Denies: throat pain, odynophagia, nasal discharge or nasal congestion Card: Denies: chest pain, palpitations, edema, swelling of feet/ankles, dyspnea on exertion or orthopnea Resp: Denies: dyspnea, productive cough or non-productive cough GI: Denies: abdominal pain, nausea, vomiting, diarrhea, constipation or hematochezia : Denies: flank pain, dysuria or hematuria Musc: Denies: neck pain, back pain or extremity swelling Skin/Breast: Reports: new lesions (Ulcer on heel right foot and open sores like blisters on front part of right lower leg.); Denies: rash Neuro: Denies: headache(s), numbness in extremities or weakness in extremities [facility] PFSH: Medical History Above knee amputation of left lower extremity Chronic pain syndrome Current every day smoker Encounter for long-term use of opiate analgesic Opioid contract exists Family History Other Diabetes Social History Smoking and tobacco status: current every day smoker cigarettes Packs smoked per day: 0.5 Alcohol intake: never Female Reproductive History: Date of last menstrual period: 04/20/20 Physical Exam Const: COMMON NORMALS: patient oriented x3 and alert GENERAL APPEARANCE: cooperative and comfortable HENMT: COMMON NORMALS: normocephalic HEAD & SCALP: normocephalic MOUTH: Normal oral and palatal mucosa present THROAT: posterior oropharynx normal and uvula midline Eye: COMMON NORMALS: Equal, round and reactive pupils present PUPIL: Yes Equal, round and reactive pupils present Neck/C-Spine: COMMON NORMALS: supple GENERAL: Yes normal visual inspection Resp: COMMON NORMALS: normal respiratory effort, No retractions, No use of accessory muscles and clear to auscultation bilaterally AUSCULTATION: clear to auscultation bilaterally Cardio: COMMON NORMALS: regular rate, regular rhythm, S1 normal heart sound present, S2 normal heart sound present, No gallops present (Cardio), No clicks present (Cardio), No murmurs present (Cardio) and Peripheral pulses 2+ throughout RATE: regular rate RHYTHM: regular rhythm HEART SOUNDS: S1 normal heart sound present and S2 normal heart sound present PERIPHERAL PULSES: Peripheral pulses 2+ throughout GI: COMMON NORMALS: Normal to inspection, nondistended, normoactive bowel sounds present, Soft to palpation, non-tender and no masses PALPATION: Yes Soft to palpation : COMMON NORMALS: Yes no CVA tenderness BLADDER/KIDNEY EXAM: Yes no CVA tenderness Back/Pelvis: COMMON NORMALS: no CVA tenderness Extremity: NARRATIVE EXTREMITY EXAM: On patient's right heel she appears to have what once was a blister but then popped and callused over. He surface of the ulcer is thick and and black. There is some warmth and erythema surrounding it. On patient's right lower leg she has multiple open sores on the anterior aspect of lower leg. They have surrounding erythema and appear to have some clear drainage. He will ulcer and the open sores are tender upon palpation. GENERAL: Yes amputation (Patient's left leg has a [id number] amputation.) Neuro: COMMON NORMALS: patient oriented x3 and moves all extremities SENSORIUM/ORIENTATION: Yes alert Skin: GENERAL SKIN EXAM: dry skin Course Vital Signs: Vital signs: Vital Signs Temperature 98.3 F 04/20/20 01:57 Pulse Rate 97 04/20/20 01:57 Respiratory Rate 16 04/20/20 01:57 Blood Pressure 129/78 04/20/20 02:25 Pulse Oximetry 96 04/20/20 02:45 MDM - Extremity (Nontraumatic) MDM Narrative: Medical decision making narrative: Patient is a 39-year-old female with a past medical history of diabetes, diabetic neuropathy and [id number]-[id number] amputation of left leg due to osteomyelitis. She presents presents to the ED with diabetic ulcer on the heel of right foot and some superficial sores on the right sanz that are oozing clear fluid. White blood cells 7.5. ESR 51, CRP 36.8. X-ray of right foot showed no signs of osteomyelitis or acute fractures. Patient was diagnosed with diabetic ulcer of the right heel and infective dermatitis. She was given a dose of Bactrim while here in the ED and sent home with a prescription for Bactrim. I placed a referral to case management for patient to see wound clinic. Patient understood and agreed with plan. Lab Data: Attestation: I reviewed the patient's lab results. Labs: Lab Results 04/20/20 04/20/20 04/20/20 Range/Units 02:30 02:30 02:33 WBC 7.5 (4.0-10.0) 10^3/ uL RBC 5.29 (4.1-5.3) 10^6/u L Hgb 14.8 (11.5-15.3) g/dL Hct 44.6 (37.0-47.0) % MCV 84.3 (81-99) fL MCH 28.0 (28.0-34.0) pg MCHC 33.2 (30.0-36.0) g/dL RDW 12.9 (12.1-15.1) % Plt Count 322 (130-400) 10^3/c mm MPV 10.3 (7.4-10.4) fL Neut % (Auto) 53.7 % Lymph % (Auto) 36.9 % [place] % (Auto) 5.1 % Eos % (Auto) 2.4 % Baso % (Auto) 0.8 % Neut # (Auto) 4.0 (1.8-7.7) 10^3/u L Lymph # (Auto) 2.8 (0.8-4.8) 10^3/u L [place] # (Auto) 0.4 (0.2-0.9) 10^3/u L Eos # (Auto) 0.2 (0.0-0.8) 10^3/u L Baso # (Auto) 0.1 (0.0-0.1) 10^3/u L Nucleated RBC % (a uto) 0 % Nucleated RBCs # 0.0 /100WBC ESR 51 H (0-15) mm/hr Sodium 133 L (136-145) mmol/L Potassium 4.2 (3.5-5.1) mmol/L Chloride 94 L (98-107) mmol/L Carbon Dioxide 25 (22-29) mmol/L Anion Gap 18.2 (5-19) BUN 14 (6-20) mg/dL Creatinine 0.7 (0.5-0.9) mg/dL GFR Calculation 93.2 (90-130) mL/min Glucose 486 H (65-115) mg/dL Calculated Osmolal ity 294 (285-295) mOsm/k g Calcium 9.5 (8.5-10.5) mg/dL Total Bilirubin 0.2 (0.15-1.2) mg/dL AST 18 (0-32) U/L ALT 21 (0-33) U/L Alkaline Phosphata se 114 H (35-105) IU/L C-Reactive Protein 36.8 H (0.0-4.9) mg/L Total Protein 6.9 (6.6-8.7) g/dL Albumin 3.8 (3.5-5.2) g/dL Globulin 3.1 (1.3-4.6) g/dL Imaging Data^: Xray Ortho: Attestation: I personally reviewed and interpreted this imaging study as follows: My impression: Right foot x-ray showed no signs of osteomyelitis and no acute fractures. Pending final radiology report. Discharge Plan Discharge Patient Disposition: Home, Self-Care Clinical Impression: Infective dermatitis Diabetic foot ulcer Qualifiers: Diabetic foot ulcer location: heel Diabetes mellitus type: type 2 Laterality: right Non-pressure ulcer stage: limited to breakdown of skin Qualified Code(s): E11.621 - Type 2 diabetes mellitus with foot ulcer Condition: Stable Prescriptions: New Bactrim DS 800-160 mg tablet 1 tab PO BID 10 Days Qty: 20 RF: 0 No Action Levemir FlexTouch U-100 Insuln 100 unit/mL (3 mL) insulin pen 100 unit SUBCUT DAILY RF: 0 Toujeo Max U-300 SoloStar 300 unit/mL (3 mL) insulin pen 30 unit SUBCUT DAILY RF: 0 hydrocodone-acetaminophen 7.5-325 mg tablet 1 tab PO QID PRN (Reason: pain) 30 Days Qty: 120 RF: 0 hydrocodone-acetaminophen 7.5-325 mg tablet 1 tab PO QID PRN (Reason: pain) 30 Days Qty: 120 RF: 0 tramadol 50 mg tablet 50 mg PO TID PRN (Reason: pain) 30 Days Qty: 90 RF: 0 gabapentin 600 mg tablet 600 mg PO TID PRN (Reason: pain) 30 Days Qty: 90 RF: 1 cyclobenzaprine 10 mg tablet 10 mg PO TID PRNRF: 0 clopidogrel [Plavix] 75 mg tablet 75 mg PO QDAY RF: 0 Combivent Respimat 20-100 mcg/actuation mist 2 puff INHALATION Q6H PRNRF: 0 albuterol sulfate 90 mcg/actuation aerosol powdr breath activated 2 inh INHALATION Q6H PRNRF: 0 Discharge Orders: Discharge Order (Routine); Ordered 04/20/20 Ordered By: Be Kim Referrals: Tina Hernandez MD [Primary Care Provider] - Discharge Diet: Regular Discharge Activity: Increase activity as tolerated Patient Instructions: Dermatitis (Contact), Diabetic Foot Ulcers (ED) Activity Restrictions/Additional Instructions: Take full course of antibiotic as prescribed. I placed a referral for you to wound clinic. Someone should be contacting you in the next several days to set up an appointment. Continue taking all home meds including your previously prescribed medications for pain. You can return to the ED for reevaluation if symptoms worsen. Discharge Date/Time: 04/20/20 02:52 Coding Level of Care Code ED [employer] for Ember Fwd Exam Comprehensive
--- NOTE | 2020-04-20 02:21 | XR_ITS ---
WS: [id number] RIGHT FOOT: 2 VIEW(S) TECHNIQUE: AP and lateral. HISTORY: Ulcer on heel possible infection. COMPARISON: 01/12/2020 No acute fracture or dislocation. Normal tarsal/metatarsal alignment. Soft tissue ulceration measuring 10 mm along the plantar surface of the hindfoot. There is also small spur at the Achilles tendon attachment. No destruction of the bone. Again noted is a foreign body wh ich projects over the mid third metatarsal. XR/XR foot RT 2V [id number] IMPRESSION: Soft tissue ulceration along the plantar surface of the hindfoot with no eviden ce for osteomyelitis.
[2020-04-20] MEDS: sulfamethoxazole-trimeth DS 160-800 mg Tablet 1 TAB PO (02:32)
[2020-04-20] MEDS: morphine 4 mg/mL SDV 1 mL IM (02:32)
[2020-04-20 02:44] LABS: Basophils # 0.1 10^3/uL (0.0-0.1); Basophils % 0.8 %; Eosinophils # 0.2 10^3/uL (0.0-0.8); Eosinophils % 2.4 %; Hematocrit 44.6 % (37.0-47.0); Hemoglobin 14.8 g/dL (11.5-15.3); Lymphocytes # 2.8 10^3/uL (0.8-4.8); Lymphocytes % 36.9 %; Mean Corpuscular HGB Conc 33.2 g/dL (30.0-36.0); Mean Corpuscular Volume 84.3 fL (81-99); Mean Platelet Volume 10.3 fL (7.4-10.4); Monocytes # 0.4 10^3/uL (0.2-0.9); Monocytes % 5.1 %; Neutrophils % 53.7 %; Nucleated Red Blood Cells % 0 %; Platelet Count 322 10^3/cmm (130-400); Red Blood Count 5.29 10^6/uL (4.1-5.3); Red Cell Distribution Width 12.9 % (12.1-15.1); White Blood Count 7.5 10^3/uL (4.0-10.0)
[2020-04-20 03:02] LABS: Alanine Aminotransferase 21 U/L (0-33); Albumin Level 3.8 g/dL (3.5-5.2); Alkaline Phosphatase 114 IU/L (35-105); Anion Gap 18.2 (5-19); Aspartate Amino Transferase 18 U/L (0-32); Blood Urea Nitrogen 14 mg/dL (6-20); Calcium 9.5 mg/dL (8.5-10.5); Carbon Dioxide 25 mmol/L (22-29); Chloride 94 mmol/L (98-107); Globulin 3.1 g/dL (1.3-4.6); Glomerular Filtration Rate 93.2 mL/min (90-130); Glucose 486 mg/dL (65-115); Osmolality Calculated 294 mOsm/kg (285-295); Potassium 4.2 mmol/L (3.5-5.1); Sodium 133 mmol/L (136-145); Total Bilirubin 0.2 mg/dL (0.15-1.2); Total Protein 6.9 g/dL (6.6-8.7)
[2020-04-20 03:14] LABS: C Reactive Protein 36.8 mg/L (0.0-4.9)
[2020-04-20 03:25] LABS: Erythrocyte Sedimentation Rate 51 mm/hr (0-15)
--- NOTE | 2020-04-20 08:22 | DCPLANNER ---
baccarat manager had a message to schedule a follow up appointment for patient with Wound Care. baccarat manager called the Wound Care clinic, spoke with Julieth, gave clinic patients information. A follow up appointment is scheduled for Tuesday, April 21, 2020 at 10:[address] Parra. Clinic will call patient with appointment information.
== END 2020-04-20 02:52 | disposition home or self-care (01) ==
PROVIDERS: Emergency Provider Physician Assistant; PCP Family Medicine
DX: E11.621 Type 2 diabetes mellitus with foot ulcer (principal); L97.411 Non-pressure chronic ulcer of right heel and midfoot limited to breakdown of skin; Z79.4 Long term (current) use of insulin; L30.3 Infective dermatitis; Z89.612 Acquired absence of left leg above knee; F17.210 Nicotine dependence, cigarettes, uncomplicated
CPT/HCPCS: 12345; 73620; 80053; 85025; 85651; 86140; 87040; 96374; 99282; 99283; J2270

== ENCOUNTER 2020-05-08 00:15 | Emergency (ER) | payer MEDICAID, SELFPAY ==
[2020-05-08 00:18] VITALS: BP 139/94; PULSE 104; RESP 18; TEMP 36.8; O2SAT 97; BMI 29.1
[2020-05-08 01:21] LABS: Basophils # 0.1 10^3/uL (0.0-0.1); Basophils % 0.7 %; Eosinophils # 0.2 10^3/uL (0.0-0.8); Eosinophils % 2.7 %; Hematocrit 44.9 % (37.0-47.0); Hemoglobin 14.9 g/dL (11.5-15.3); Lymphocytes # 2.3 10^3/uL (0.8-4.8); Lymphocytes % 33.3 %; Mean Corpuscular HGB Conc 33.2 g/dL (30.0-36.0); Mean Corpuscular Hemoglobin 27.5 pg (28.0-34.0); Mean Corpuscular Volume 82.8 fL (81-99); Mean Platelet Volume 10.7 fL (7.4-10.4); Monocytes # 0.4 10^3/uL (0.2-0.9); Monocytes % 6.2 %; Neutrophils # 3.82 10^3/uL (1.8-7.7); Neutrophils % 56.4 %; Nucleated Red Blood Cells % 0 %; Platelet Count 286 10^3/cmm (130-400); Red Blood Count 5.42 10^6/uL (4.1-5.3); Red Cell Distribution Width 12.5 % (12.1-15.1); White Blood Count 6.8 10^3/uL (4.0-10.0)
[2020-05-08 01:31] LABS: Alanine Aminotransferase 21 U/L (0-33); Albumin Level 3.8 g/dL (3.5-5.2); Alkaline Phosphatase 110 IU/L (35-105); Anion Gap 17.4 (5-19); Aspartate Amino Transferase 18 U/L (0-32); Blood Urea Nitrogen 11 mg/dL (6-20); Calcium 9.3 mg/dL (8.5-10.5); Carbon Dioxide 24 mmol/L (22-29); Chloride 92 mmol/L (98-107); Glomerular Filtration Rate 111.3 mL/min (90-130); Osmolality Calculated 293 mOsm/kg (285-295); Potassium 4.4 mmol/L (3.5-5.1); Sodium 129 mmol/L (136-145); Total Bilirubin 0.2 mg/dL (0.15-1.2); Total Protein 6.8 g/dL (6.6-8.7)
[2020-05-08 01:32] LABS: Lactic Sepsis W/Reflex 3.7 mmol/L (0.5-2.2)
[2020-05-08 01:40] LABS: Glucose 616 mg/dL (65-115)
--- NOTE | 2020-05-08 01:50 | PC.NURSE ---
advised Dr. Corona of critical glucose of 616 per lab. no orders given at this time
--- NOTE | 2020-05-08 02:21 | W.ED.EXTPRO ---
HPI - Extremity Problem General: Chief complaint: Extremity Injury, Lower Stated complaint: nontraumtic leg pain Time Seen by Provider: 05/08/20 02:21 History of Present Illness: HPI Narrative: Patient is a 39-year-old female comes to the ED with right lower extremity pain and possible infection. 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 Patient was seen here in the ED for same complaint on April 20. She was discharged and a referral was made for patient to see wound clinic and she was put on Bactrim. Patient missed wound clinic appointment and now rescheduled for May 16. Patient says she took full course of Bactrim and there was no improvement. She says the pain and sores on leg have gotten worse. She describes the pain as a sharp deep pain in the right lower leg. She rates it an 8 out of 10 currently. Denies any fever or chills, nausea or vomiting. Patient did say she has not been taking her diabetes medications. Associated symptoms: Deny chest pain, fever(s) or rash Review of Systems Const: Denies: fever(s), chills or fatigue Eyes: Denies: change in vision or eye discomfort ENMT: Denies: throat pain, odynophagia, nasal discharge or nasal congestion Card: Denies: chest pain, palpitations, edema, swelling of feet/ankles, dyspnea on exertion or orthopnea Resp: Denies: dyspnea, productive cough or non-productive cough GI: Denies: abdominal pain, nausea, vomiting, diarrhea, constipation or hematochezia : Denies: flank pain, dysuria or hematuria Musc: Reports: extremity pain (Right lower extremity pain); Denies: neck pain, back pain or extremity swelling Skin/Breast: Reports: new lesions; Denies: rash Neuro: Denies: headache(s), numbness in extremities or weakness in extremities PFS ED PFSH: Medical History Above knee amputation of left lower extremity Chronic pain syndrome Current every day smoker Encounter for long-term use of opiate analgesic Opioid contract exists Family History Other Diabetes Social History Smoking and tobacco status: current every day smoker cigarettes Packs smoked per day: 0.5 Alcohol intake: never Female Reproductive History: Date of last menstrual period: 04/20/20 Physical Exam Const: COMMON NORMALS: no acute distress, patient oriented x3 and alert GENERAL APPEARANCE: cooperative and comfortable HENMT: COMMON NORMALS: normocephalic HEAD & SCALP: normocephalic MOUTH: Normal oral and palatal mucosa present THROAT: posterior oropharynx normal and uvula midline Eye: COMMON NORMALS: Equal, round and reactive pupils present PUPIL: Yes Equal, round and reactive pupils present Neck/C-Spine: COMMON NORMALS: supple GENERAL: Yes normal visual inspection Resp: COMMON NORMALS: normal respiratory effort, No retractions, No use of accessory muscles and clear to auscultation bilaterally AUSCULTATION: clear to auscultation bilaterally Cardio: COMMON NORMALS: regular rate, regular rhythm, S1 normal heart sound present, S2 normal heart sound present, No gallops present (Cardio), No clicks present (Cardio) and No murmurs present (Cardio) RATE: regular rate RHYTHM: regular rhythm HEART SOUNDS: S1 normal heart sound present and S2 normal heart sound present PERIPHERAL PULSES: radial pulses present positive bilateral 2+ GI: COMMON NORMALS: Normal to inspection, nondistended, normoactive bowel sounds present, Soft to palpation, non-tender and no masses PALPATION: Yes Soft to palpation : COMMON NORMALS: Yes no CVA tenderness BLADDER/KIDNEY EXAM: Yes no CVA tenderness Back/Pelvis: COMMON NORMALS: no CVA tenderness Extremity: NARRATIVE EXTREMITY EXAM: Patient has multiple ulcerations on the skin of the anterior side of the lower leg. There is surrounding erythema and warmth. Surface of ulcers are white/yellow color. Size of ulcers are circular and approximately 0.5-1cm in size. 1 ulcer is irregularly shaped and larger. Right lower extremity is tender to palpation around ulcers and erythema. This appears to be advancing cellulitis. Patient also has a possible superficial ulcer to right heel. There is no surrounding erythema or warmth around heel ulcer. Pedal pulse 1+. GENERAL: Yes normal exam except as noted and Yes amputation (Left [id number] amputation.) Neuro: COMMON NORMALS: patient oriented x3 and moves all extremities SENSORIUM/ORIENTATION: Yes alert Skin: NARRATIVE SKIN EXAM: Detail of lesions discussed in extremity section of exam. GENERAL SKIN EXAM: dry skin Course Vital Signs: Vital signs: Vital Signs Temperature 98.2 F 05/08/20 00:18 Pulse Rate 94 05/08/20 05:20 Respiratory Rate 18 05/08/20 05:20 Blood Pressure 127/91 05/08/20 05:20 Pulse Oximetry 97 05/08/20 05:20 MDM - Extremity (Nontraumatic) MDM Narrative: Medical decision making narrative: Patient is a 39-year-old female with a past medical history of type 2 diabetes and left [id number] amputation due osteomyelitis. I saw patient here in the ED on April 20 for same complaint and diagnosed her with cellulitis and put on a prescription of Bactrim and a wound care clinic referral was placed for her. Patient missed her wound care clinic appointment and has it rescheduled for next week. Today the cellulitis has gotten worse. White blood cells 6.8, sodium 129, blood glucose 616. Lactate 3.7, ESR 37 and CRP 18.7. X-rays of the right tibia and right foot showed no acute findings or signs of osteomyelitis. I discussed patient's case with Dr. Berger and he wanted patient to be admitted. Patient was put on IV vancomycin while here in the ED. Patient was set to be admitted, but then she refused to be admitted and signed out AMA. Patient did sign AMA form. She was given a prescription of cephalexin and Bactrim before she left. Lab Data: Attestation: I reviewed the patient's lab results. Labs: Lab Results 05/08/20 05/08/20 05/08/20 Range/Units 01:11 01:11 01:11 WBC 6.8 (4.0-10.0) 10^3/ uL RBC 5.42 H (4.1-5.3) 10^6/u L Hgb 14.9 (11.5-15.3) g/dL Hct 44.9 (37.0-47.0) % MCV 82.8 (81-99) fL MCH 27.5 L (28.0-34.0) pg MCHC 33.2 (30.0-36.0) g/dL RDW 12.5 (12.1-15.1) % Plt Count 286 (130-400) 10^3/c mm MPV 10.7 H (7.4-10.4) fL Neut % (Auto) 56.4 % Lymph % (Auto) 33.3 % [place] % (Auto) 6.2 % Eos % (Auto) 2.7 % Baso % (Auto) 0.7 % Neut # (Auto) 3.82 (1.8-7.7) 10^3/u L Lymph # (Auto) 2.3 (0.8-4.8) 10^3/u L [place] # (Auto) 0.4 (0.2-0.9) 10^3/u L Eos # (Auto) 0.2 (0.0-0.8) 10^3/u L Baso # (Auto) 0.1 (0.0-0.1) 10^3/u L Nucleated RBC % (a uto) 0 % Nucleated RBCs # 0.0 /100WBC ESR (0-15) mm/hr Sodium 129 L (136-145) mmol/L Potassium 4.4 (3.5-5.1) mmol/L Chloride 92 L (98-107) mmol/L Carbon Dioxide 24 (22-29) mmol/L Anion Gap 17.4 (5-19) BUN 11 (6-20) mg/dL Creatinine 0.6 (0.5-0.9) mg/dL GFR Calculation 111.3 (90-130) mL/min Glucose 616 H* (65-115) mg/dL Calculated Osmolal ity 293 (285-295) mOsm/k g Lactic Acid 3.7 H (0.5-2.2) mmol/L Lactic Acid (Sepsi s) (0.5-2.2) mmol/L Calcium 9.3 (8.5-10.5) mg/dL Total Bilirubin 0.2 (0.15-1.2) mg/dL AST 18 (0-32) U/L ALT 21 (0-33) U/L Alkaline Phosphata se 110 H (35-105) IU/L C-Reactive Protein (0.0-4.9) mg/L Total Protein 6.8 (6.6-8.7) g/dL Albumin 3.8 (3.5-5.2) g/dL Globulin 3.0 (1.3-4.6) g/dL 05/08/20 05/08/20 05/08/20 Range/Units 01:11 01:11 04:50 WBC (4.0-10.0) 10^3/ uL RBC (4.1-5.3) 10^6/u L Hgb (11.5-15.3) g/dL Hct (37.0-47.0) % MCV (81-99) fL MCH (28.0-34.0) pg MCHC (30.0-36.0) g/dL RDW (12.1-15.1) % Plt Count (130-400) 10^3/c mm MPV (7.4-10.4) fL Neut % (Auto) % Lymph % (Auto) % [place] % (Auto) % Eos % (Auto) % Baso % (Auto) % Neut # (Auto) (1.8-7.7) 10^3/u L Lymph # (Auto) (0.8-4.8) 10^3/u L [place] # (Auto) (0.2-0.9) 10^3/u L Eos # (Auto) (0.0-0.8) 10^3/u L Baso # (Auto) (0.0-0.1) 10^3/u L Nucleated RBC % (a uto) % Nucleated RBCs # /100WBC ESR 37 H (0-15) mm/hr Sodium (136-145) mmol/L Potassium (3.5-5.1) mmol/L Chloride (98-107) mmol/L Carbon Dioxide (22-29) mmol/L Anion Gap (5-19) BUN (6-20) mg/dL Creatinine (0.5-0.9) mg/dL GFR Calculation (90-130) mL/min Glucose (65-115) mg/dL Calculated Osmolal ity (285-295) mOsm/k g Lactic Acid 1.4 (0.5-2.2) mmol/L Lactic Acid (Sepsi s) 1.4 (0.5-2.2) mmol/L Calcium (8.5-10.5) mg/dL Total Bilirubin (0.15-1.2) mg/dL AST (0-32) U/L ALT (0-33) U/L Alkaline Phosphata se (35-105) IU/L C-Reactive Protein 18.7 H (0.0-4.9) mg/L Total Protein (6.6-8.7) g/dL Albumin (3.5-5.2) g/dL Globulin (1.3-4.6) g/dL Imaging Data^: Xray Ortho: Attestation: I personally reviewed and interpreted this imaging study as follows: My impression: Right foot x-ray and right tibia x-ray was normal and showed no acute fractures or signs of osteomyelitis. Discharge Plan Discharge Patient Disposition: Left Against Medical Advice Clinical Impression: Cellulitis Qualifiers: Site of cellulitis: extremity Site of cellulitis of extremity: lower extremity Laterality: right Qualified Code(s): L03.115 - Cellulitis of right lower limb Condition: Stable Prescriptions: New Bactrim DS 800-160 mg tablet 2 tab PO BID 14 Days Qty: 56 RF: 0 cephalexin 500 mg capsule 500 mg PO BID 14 Days Qty: 28 RF: 0 No Action Levemir FlexTouch U-100 Insuln 100 unit/mL (3 mL) insulin pen 100 unit SUBCUT DAILY RF: 0 Toujeo Max U-300 SoloStar 300 unit/mL (3 mL) insulin pen 30 unit SUBCUT DAILY RF: 0 hydrocodone-acetaminophen 7.5-325 mg tablet 1 tab PO QID PRN (Reason: pain) 30 Days Qty: 120 RF: 0 hydrocodone-acetaminophen 7.5-325 mg tablet 1 tab PO QID PRN (Reason: pain) 30 Days Qty: 120 RF: 0 tramadol 50 mg tablet 50 mg PO TID PRN (Reason: pain) 30 Days Qty: 90 RF: 0 gabapentin 600 mg tablet 600 mg PO TID PRN (Reason: pain) 30 Days Qty: 90 RF: 1 cyclobenzaprine 10 mg tablet 10 mg PO TID PRNRF: 0 clopidogrel [Plavix] 75 mg tablet 75 mg PO QDAY RF: 0 Combivent Respimat 20-100 mcg/actuation mist 2 puff INHALATION Q6H PRNRF: 0 albuterol sulfate 90 mcg/actuation aerosol powdr breath activated 2 inh INHALATION Q6H PRNRF: 0 Referrals: Tina Hernandez MD [Primary Care Provider] - Discharge Diet: Regular Discharge Activity: Increase activity as tolerated Patient Instructions: Cellulitis (ED) Activity Restrictions/Additional Instructions: Follow-up with medical provider as directed. Take medications as prescribed. Return to the ER or your medical provider if condition worsens. Please read and understand discharge instructions. If any questions, please ask. 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
--- NOTE | 2020-05-08 02:42 | XRR_ITS ---
PROCEDURE INFORMATION: Exam: XR Right Tibia and Fibula Exam date and time: 05/08/2020 4:06 AM Age: 39 years old Clinical indication: Cellulitis and other: Cellulitis infection now having tibia bone pain; Lower leg; Patient HX: Diabetic ulcer on right heel TECHNIQUE: Imaging protocol: XR Right tibia and fibula. Views: 2 views. COMPARISON: No relevant prior studies available. FINDINGS: Bones/joints: Normal. No acute fracture. Soft tissues: Normal. XR/XR tibia fibula RT 2V [id number] IMPRESSION: No acute findings.
--- NOTE | 2020-05-08 02:42 | XRR_ITS ---
PROCEDURE INFORMATION: Exam: XR Right Foot Complete Exam date and time: 05/08/2020 4:06 AM Age: 39 years old Clinical indication: Other: Diabetic ulcer right heel; Patient HX: Cellulitis infection now having tibia bone pain; Additional info: Diabetic ulcer on right heel TECHNIQUE: Imaging protocol: XR Right foot. Views: 3 or more views. COMPARISON: CR XR foot RT 2V [id number] 04/20/2020 2:35 AM FINDINGS: Bones/joints: Normal. No fracture. No evidence of periostitis or bone destruction. Soft tissues: Focal soft tissue lucency at the calcaneal plantar soft tissues which may reflect soft tissue ulceration. XR/XR foot RT min 3V* [id number] IMPRESSION: 1. No acute osseous abnormality.
[2020-05-08 03:03] LABS: Reflex Lactate Order REFLEX LACTIC ORDERD
[2020-05-08] MEDS: sodium chloride 0.9% 1,000 ML 999 ML IV (03:22)
[2020-05-08 03:23] VITALS: RESP 16
[2020-05-08] MEDS: morphine 4 mg/mL SDV 1 mL IVP (03:23)
[2020-05-08] MEDS: ondansetron 2 mg/ML SDV 2 mL 4 MG IVP (03:23)
[2020-05-08 03:46] LABS: C Reactive Protein 18.7 mg/L (0.0-4.9)
[2020-05-08 03:51] LABS: Erythrocyte Sedimentation Rate 37 mm/hr (0-15)
[2020-05-08 05:20] VITALS: BP 127/91; PULSE 94; RESP 18; O2SAT 97
[2020-05-08 05:23] LABS: Lactic Acid level (Lactate) 1.4 mmol/L (0.5-2.2); Lactic Sepsis W/Reflex 1.4 mmol/L (0.5-2.2)
== END 2020-05-08 05:23 | disposition left against medical advice (07) ==
PROVIDERS: Emergency Medicine; Emergency Provider Physician Assistant; PCP Family Medicine
DX: L03.115 Cellulitis of right lower limb (principal); Z53.21 Procedure and treatment not carried out due to patient leaving prior to being seen by health care provider; Z79.02 Long term (current) use of antithrombotics/antiplatelets; Z79.4 Long term (current) use of insulin; F17.210 Nicotine dependence, cigarettes, uncomplicated
CPT/HCPCS: 12345; 36415; 73590; 73630; 80053; 83605; 85025; 85651; 86140; 87040; 96365; 96366; 96367; 96372; 96375; 99282; 99284; J1815; J2270; J2405; J3370; J7030; J7050

== ENCOUNTER → 2020-06-12 10:22 | Outpatient (BNVA) | payer MEDICAID, SELFPAY | PROVIDERS: PCP Family Medicine; Visit Provider Anesthesiology | DX: G89.4 Chronic pain syndrome (principal); M54.41 Lumbago with sciatica, right side; M54.9 Dorsalgia, unspecified; S78.112A Complete traumatic amputation at level between left hip and knee, initial encounter; X58.XXXA Exposure to other specified factors, initial encounter; F17.210 Nicotine dependence, cigarettes, uncomplicated; Z71.6 Tobacco abuse counseling; Z79.891 Long term (current) use of opiate analgesic | CPT/HCPCS: 99214 ==

== ENCOUNTER → 2020-07-22 08:46 | Outpatient (BNVA) | payer MEDICAID, SELFPAY | PROVIDERS: PCP Family Medicine; Visit Provider Anesthesiology | DX: G89.4 Chronic pain syndrome (principal); M54.41 Lumbago with sciatica, right side; M54.9 Dorsalgia, unspecified; S78.112A Complete traumatic amputation at level between left hip and knee, initial encounter; X58.XXXA Exposure to other specified factors, initial encounter; F17.210 Nicotine dependence, cigarettes, uncomplicated; Z79.891 Long term (current) use of opiate analgesic | CPT/HCPCS: 99213; 99214 ==

== ENCOUNTER 2020-07-24 20:04 | Emergency (ER) | payer MEDICAID, SELFPAY ==
--- NOTE | 2020-07-24 20:13 | USCV_ITS ---
Alina Hewitt Age: 39 Gender: F : 1980 Exam Date: 07/24/2020 21:58 Ordering Phys: Jim Cyr DO Technologist: Inga Calderon [place] [facility] [place]: [place] IN RT LEG HISTORY: Pain Rt Leg PROCEDURES: Venous duplex imaging was performed in only the right lower extremity. The following venous structures were evaluated: common femoral vein, profunda vein, proximal portion of the greater saphenous vein, superficial femoral vein, and the popliteal vein. In addition, the posterior tibial and peroneal trunk were evaluated. Serial compression, augmentation maneuvers, and spectral Doppler flow evaluation were performed. FINDINGS: No DVT seen in any vessel examined Large Lymph nodes seen rt. upper leg Circumscribed echodense lesions in the groin area CONCLUSIONS No evidence of DVT in the above-mentioned identifiable veins. Features of enlarged lymph nodes in the right groin Dr Azalia Cruz MD FAC (Electronically Signed) Final Date: 25 July 2020 11:11 S
[2020-07-24 21:32] LABS: Basophils # 0.1 10^3/uL (0.0-0.1); Basophils % 0.7 %; Eosinophils # 0.2 10^3/uL (0.0-0.8); Eosinophils % 2.6 %; Hematocrit 45.7 % (37.0-47.0); Hemoglobin 14.9 g/dL (11.5-15.3); Lymphocytes # 2.3 10^3/uL (0.8-4.8); Lymphocytes % 33.1 %; Mean Corpuscular HGB Conc 32.6 g/dL (30.0-36.0); Mean Corpuscular Hemoglobin 27.9 pg (28.0-34.0); Mean Corpuscular Volume 85.4 fL (81-99); Mean Platelet Volume 10.3 fL (7.4-10.4); Monocytes # 0.4 10^3/uL (0.2-0.9); Monocytes % 5.3 %; Neutrophils % 57.3 %; Nucleated Red Blood Cells % 0 %; Platelet Count 277 10^3/cmm (130-400); Red Blood Count 5.35 10^6/uL (4.1-5.3); Red Cell Distribution Width 12.8 % (12.1-15.1)
[2020-07-24 21:38] VITALS: BP 108/76; PULSE 101; RESP 20; TEMP 36.8; O2SAT 97; BMI 29.1
[2020-07-24 22:02] LABS: Alanine Aminotransferase 16 U/L (0-33); Albumin Level 3.3 g/dL (3.5-5.2); Alkaline Phosphatase 120 IU/L (35-105); Blood Urea Nitrogen 7 mg/dL (6-20); Calcium 9.2 mg/dL (8.5-10.5); Carbon Dioxide 23 mmol/L (22-29); Chloride 89 mmol/L (98-107); Globulin 3.3 g/dL (1.3-4.6); Glomerular Filtration Rate 111.3 mL/min (90-130); Osmolality Calculated 291 mOsm/kg (285-295); Sodium 126 mmol/L (136-145); Total Bilirubin 0.2 mg/dL (0.15-1.2); Total Protein 6.6 g/dL (6.6-8.7)
[2020-07-24 22:03] LABS: Anion Gap 18.9 (5-19); Aspartate Amino Transferase 16 U/L (0-32); Potassium 4.9 mmol/L (3.5-5.1)
[2020-07-24 22:04] LABS: Glucose 652 mg/dL (65-115)
--- NOTE | 2020-07-24 22:14 | PC.NURSE ---
Lab notified staff of critical BS of 652. 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
[2020-07-24 23:44] VITALS: BP 115/84; PULSE 103; O2SAT 97
[2020-07-25 00:08] LABS: Add Urine Microscopic? YES; Bilirubin Urine Neg (Negative); Blood Urine Neg (Negative); Glucose Urine UA 4+ (Normal); Ketones Urine Negative (Negative); Leukocyte Esterase Urine Negative (Negative); Nitrate Urine Negative (Negative); Protein Urine 1+ (Negative); Specific Gravity, Urine 1.005 (1.005-1.030); Urine Appearance Clear (CLEAR); Urine Color Yellow (Yellow); Urobilinogen Urine Norm (Negative); pH Urine 7 (5-7)
[2020-07-25 00:23] LABS: Squamous Epithelial Cell Urine 0-4 /hpf (0-5); WBC Urine 0-4 /hpf (0-5)
[2020-07-25 00:24] LABS: Add Urine Culture? Yes; Bacteria Urine 2+ /hpf
[2020-07-25 00:44] VITALS: BP 123/78; PULSE 100; RESP 16; O2SAT 95
--- NOTE | 2020-07-25 00:44 | ED_ITS ---
HPI - General Adult General: Chief complaint: General Medical Stated complaint: right leg pain Time Seen by Provider: 07/25/20 00:42 History of Present Illness: HPI narrative: Patient is a 39-year-old female comes to the ED with right leg pain. 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 she has been seen here multiple times for same complaint of the last 3 months. Patient has been referred to wound care previously and says that she is taking her antibiotics as prescribed and is followed up with wound care and the pain and sores on her right leg have not improved. Patient says she has a scheduled appointment on Monday with a order management specialist in [place]. Patient also states that she has been taking her insulin to treat her diabetes. Associated symptoms: Deny chest pain, dyspnea, headache(s), nausea, rash, palpitations or vomiting Review of Systems Const: Denies: fever(s), chills or fatigue Eyes: Denies: change in vision or eye discomfort ENMT: Denies: throat pain, odynophagia, nasal discharge or nasal congestion Card: Denies: chest pain, palpitations, edema, swelling of feet/ankles, dyspnea on exertion or orthopnea Resp: Denies: dyspnea, productive cough or non-productive cough GI: Denies: abdominal pain, nausea, vomiting, diarrhea, constipation or hematochezia : Denies: flank pain, dysuria or hematuria Musc: Reports: extremity pain (right leg); Denies: neck pain, back pain or extremity swelling Skin/Breast: Reports: sores (Multiple sores on lower right leg) and new lesions (Multiple sores on lower right leg.); Denies: rash Neuro: Denies: headache(s), numbness in extremities or weakness in extremities [facility] ED PFSH: Medical History Above knee amputation of left lower extremity Chronic pain syndrome Current every day smoker Encounter for long-term use of opiate analgesic Opioid contract exists Family History Other Diabetes Social History Smoking and tobacco status: current every day smoker cigarettes Packs smoked per day: 0.5 Alcohol intake: never History of recent travel: No Female Reproductive History: Date of last menstrual period: 04/20/20 Physical Exam Const: COMMON NORMALS: patient oriented x3 HENMT: COMMON NORMALS: normocephalic HEAD & SCALP: normocephalic MOUTH: Normal oral and palatal mucosa present THROAT: posterior oropharynx normal and uvula midline Neck/C-Spine: COMMON NORMALS: supple GENERAL: Yes normal visual inspection Resp: COMMON NORMALS: normal respiratory effort, No retractions, No use of accessory muscles and clear to auscultation bilaterally AUSCULTATION: clear to auscultation bilaterally Cardio: COMMON NORMALS: regular rate, regular rhythm, S1 normal heart sound present, S2 normal heart sound present, No gallops present (Cardio), No clicks present (Cardio), No murmurs present (Cardio) and Peripheral pulses 2+ throughout RATE: regular rate RHYTHM: regular rhythm HEART SOUNDS: S1 normal heart sound present and S2 normal heart sound present PERIPHERAL PULSES: Peripheral pulses 2+ throughout GI: COMMON NORMALS: Normal to inspection, nondistended, normoactive bowel sounds present, Soft to palpation, non-tender and no masses PALPATION: Yes Soft to palpation : COMMON NORMALS: Yes no CVA tenderness BLADDER/KIDNEY EXAM: Yes no CVA tenderness Back/Pelvis: COMMON NORMALS: no CVA tenderness Extremity: NARRATIVE EXTREMITY EXAM: I have seen this patient previously and have examined the sores on her right leg previously. The sores seem to have continued to get worse and more sores have popped up since last time I saw patient. They appear to to be multiple ulcer like lesions. No active purulent draining seen. GENERAL: Yes normal exam except as noted and Yes amputation (Leg amputation above the knee.) Neuro: COMMON NORMALS: patient oriented x3 and moves all extremities Skin: NARRATIVE SKIN EXAM: I have seen this patient previously and have examined the sores on her right leg previously. The sores seem to have continued to get worse and more sores have popped up since last time I saw patient. They appear to to be multiple ulcer like lesions. No active purulent draining seen. Erythema, tenderness and warmth of the skin. suggestive of cellulitis. GENERAL SKIN EXAM: dry skin Course Vital Signs: Vital signs: Vital Signs Temperature 98.2 F 07/24/20 21:38 Pulse Rate 98 09/26/20 01:51 Respiratory Rate 16 07/25/20 01:51 Blood Pressure 105/67 07/25/20 01:51 Pulse Oximetry 96 07/25/20 01:51 MDM - General Adult MDM Narrative: Medical decision making narrative: Patient is a 39-year-old female comes to the ED with right lower extremity pain. Patient has been seen here in the ED multiple times for same complaint over the past 2 to 3 months. I have examined patient before back on April 20 and sold the lesions and sores on her right lower leg. Today she has more of those sores on her leg and the ones that were there previously have gotten bigger. She has erythema, warmth and tenderness to the skin over her right lower leg. It appears that she has some cellulitis. Since patient sores on right leg have continued to progress and get worse and due to her history of osteomyelitis I ordered CT right extremity. Results showed cellulitis but no osteomyelitis seen. Patient also had glucose of 652 upon arrival here in the ED. Her sodium was 126, but when corrected due to hyperglycemia her sodium value was 135. Patient was given 10 units of NovoLog. glucose checked again approximately an hour after giving NovoLog and it was 325. White blood cells 7.0. Patient diagnosed with cellulitis and diab etic hyperglycemia. Patient was told to check her blood sugars and administer her prescribed insulin daily. She was sent home with a prescription for clindamycin for her cellulitis. Patient has a scheduled appointment on this coming Monday with a order management specialist in [place]. Return to ED precautions given. Patient understood and agreed with plan. Lab Data: Attestation: I reviewed the patient's lab results. Lab results narrative: Patient has a sodium of 126, but with sodium being corrected in light of hyperglycemia the actual corrected amount is 135. Accu-Chek glucose was performed at 3:35 AM by nurse and her glucose was 325. Labs: Lab Results 07/24/20 07/24/20 07/24/20 Range/Units 21:19 21:19 23:31 WBC 7.0 (4.0-10.0) 10^3/ uL RBC 5.35 H (4.1-5.3) 10^6/u L Hgb 14.9 (11.5-15.3) g/dL Hct 45.7 (37.0-47.0) % MCV 85.4 (81-99) fL MCH 27.9 L (28.0-34.0) pg MCHC 32.6 (30.0-36.0) g/dL RDW 12.8 (12.1-15.1) % Plt Count 277 (130-400) 10^3/c mm MPV 10.3 (7.4-10.4) fL Neut % (Auto) 57.3 % Lymph % (Auto) 33.1 % [place] % (Auto) 5.3 % Eos % (Auto) 2.6 % Baso % (Auto) 0.7 % Neut # (Auto) 4.00 (1.8-7.7) 10^3/u L Lymph # (Auto) 2.3 (0.8-4.8) 10^3/u L [place] # (Auto) 0.4 (0.2-0.9) 10^3/u L Eos # (Auto) 0.2 (0.0-0.8) 10^3/u L Baso # (Auto) 0.1 (0.0-0.1) 10^3/u L Nucleated RBC % (a uto) 0 % Nucleated RBCs # 0.0 /100WBC Sodium 126 L (136-145) mmol/L Potassium 4.9 (3.5-5.1) mmol/L Chloride 89 L (98-107) mmol/L Carbon Dioxide 23 (22-29) mmol/L Anion Gap 18.9 (5-19) BUN 7 (6-20) mg/dL Creatinine 0.6 (0.5-0.9) mg/dL GFR Calculation 111.3 (90-130) mL/min Glucose 652 H* (65-115) mg/dL Calculated Osmolal ity 291 (285-295) mOsm/k g Calcium 9.2 (8.5-10.5) mg/dL Total Bilirubin 0.2 (0.15-1.2) mg/dL AST 16 (0-32) U/L ALT 16 (0-33) U/L Alkaline Phosphata se 120 H (35-105) IU/L Total Protein 6.6 (6.6-8.7) g/dL Albumin 3.3 L (3.5-5.2) g/dL Globulin 3.3 (1.3-4.6) g/dL Urine Color Yellow (Yellow) Urine Appearance Clear (CLEAR) Urine pH 7 (5-7) Ur Specific Gravit y 1.005 (1.005-1.030) Urine Protein 1+ H (Negative) Urine Glucose (UA) 4+ H (Normal) Urine Ketones Negative (Negative) Urine Blood Neg (Negative) Urine Nitrate Negative (Negative) Urine Bilirubin Neg (Negative) Urine Urobilinogen Norm (Negative) mg/dL Ur Leukocyte Julia ase Negative (Negative) Urine RBC 5-10 H (0-2) /hpf Urine WBC 0-4 H (0-5) /hpf Ur Squamous Epith Cells 0-4 H (0-5) /hpf Amorphous Sediment Not Reportable Urine Bacteria 2+ H (NONE) /hpf Urine Yeast 1+ H /hpf Imaging Data^: Other CT: Attestation: I personally reviewed and interpreted this imaging study as follows: Radiologist's impression: [place] [address] CT Scan Report Signed Patient: Alina Hewitt Unit #: [id number] : 1980 Age/Sex: 39 / F ADM Date: 07/24/20 Loc: ER Room/Bed: Attending Dr: Ordering Provider/Ordering MD: Be Kim Date of Service: 07/25/20 Procedure(s): CT lower leg RT wo con* [id number] Accession Number(s): [id number] Report Number: [id number] PROCEDURE INFORMATION: Exam: CT Right Lower Extremity Without Contrast; Lower Leg Exam date and time: 07/25/2020 2:36 AM Age: 39 years old Clinical indication: Pain; Right; Patient HX: PT has diabetic ulcers on RT lower leg; Additional info: Right leg pain???evaluation for osteomyelitis. TECHNIQUE: Imaging protocol: CT of the Right lower extremity without contrast was performed. Exam focused on the lower leg. Radiation optimization: All CT scans at this facility use at least one of these dose optimization techniques: automated exposure control; mA and/or kV adjustment per patient size (includes targeted exams where dose is matched to clinical indication); or iterative reconstruction. COMPARISON: CR XR tibia fibula RT 2V [id number] 05/08/2020 3:51 AM RADIATION DOSE METRICS: Total DLP (mGy-cm): 1012.1 FINDINGS: Bones/joints: Normal. No lytic lesion is seen. No periosteal reaction is present. Soft tissues: Thickening of the skin and subcutaneous tissues is seen in the lower leg with edema. No fluid collection or abscess is identified.. CT/CT lower leg RT wo con* [id number] IMPRESSION: 1. Cellulitis is seen in the lower leg. Negative for abscess or fluid collection. 2. Negative for osteomyelitis. Radiation Dose CTDIVOL = (mGy): DLP = 1012.1 (mGy-cm) Dictated By: Tatum Martinez Signed By: Tatum Martinez Signed Date/Time: 07/25/20319 DD/ 8 Discharge Plan Discharge Patient Disposition: Home Clinical Impression: Cellulitis Qualifiers: Site of cellulitis: extremity Site of cellulitis of extremity: lower extremity Laterality: right Qualified Code(s): L03.115 - Cellulitis of right lower limb Condition: Stable Prescriptions: New clindamycin HCl 150 mg capsule 300 mg PO QID 7 Days Qty: 56 RF: 0 No Action Levemir FlexTouch U-100 Insuln 100 unit/mL (3 mL) insulin pen 100 unit SUBCUT DAILY RF: 0 Toujeo Max U-300 SoloStar 300 unit/mL (3 mL) insulin pen 30 unit SUBCUT DAILY RF: 0 hydrocodone-acetaminophen 7.5-325 mg tablet 1 tab PO QID PRN (Reason: pain) 30 Days Qty: 120 RF: 0 hydrocodone-acetaminophen 7.5-325 mg tablet 1 tab PO QID PRN (Reason: pain) 30 Days Qty: 120 RF: 0 gabapentin 600 mg tablet 600 mg PO TID PRN (Reason: pain) 30 Days Qty: 90 RF: 1 tramadol 50 mg tablet 50 mg PO TID PRN (Reason: pain) 30 Days Qty: 90 RF: 1 Combivent Respimat 20-100 mcg/actuation mist 2 puff INHALATION Q6H PRNRF: 0 albuterol sulfate 90 mcg/actuation aerosol powdr breath activated 2 inh INHALATION Q6H PRNRF: 0 Discharge Orders: Discharge Order (Routine); Ordered 07/25/20 Ordered By: Be Kim Referrals: Tina Hernandez MD [Primary Care Provider] - Discharge Diet: Diabetic Discharge Activity: Increase activity as tolerated Patient Instructions: Cellulitis (ED), Diabetic Hyperglycemia (ED) Activity Restrictions/Additional Instructions: Follow-up with medical provider as directed. Go to your manager of care in [place] on Monday as previously scheduled. Take medications as prescribed. Make sure to check blood sugars daily and to take your insulin as prescribed. Return to the ER or your medical provider if condition worsens. Please read and understand discharge instructions. If any questions, please ask. Coding Level of Care Code ED [employer] Development Intern for [employer]g Fwd Exam Comprehensive
--- NOTE | 2020-07-25 01:08 | CTR_ITS ---
PROCEDURE INFORMATION: Exam: CT Right Lower Extremity Without Contrast; Lower Leg Exam date and time: 07/25/2020 2:36 AM Age: 39 years old Clinical indication: Pain; Right; Patient HX: PT has diabetic ulcers on RT lower leg; Additional info: Right leg pain???evaluation for osteomyelitis. TECHNIQUE: Imaging protocol: CT of the Right lower extremity without contrast was performed. Exam focused on the lower leg. Radiation optimization: All CT scans at this facility use at least one of these dose optimization techniques: automated exposure control; mA and/or kV adjustment per patient size (includes targeted exams where dose is matched to clinical indication); or iterative reconstruction. COMPARISON: CR XR tibia fibula RT 2V [id number] 05/08/2020 3:51 AM RADIATION DOSE METRICS: Total DLP (mGy-cm): 1012.1 FINDINGS: Bones/joints: Normal. No lytic lesion is seen. No periosteal reaction is present. Soft tissues: Thickening of the skin and subcutaneous tissues is seen in the lower leg with edema. No fluid collection or abscess is identified.. CT/CT lower leg RT wo con* [id number] IMPRESSION: 1. Cellulitis is seen in the lower leg. Negative for abscess or fluid collection. 2. Negative for osteomyelitis. Radiation Dose CTDIVOL = (mGy): DLP = 1012.1 (mGy-cm)
[2020-07-25 01:48] VITALS: RESP 16; O2SAT 97
[2020-07-25] MEDS: morphine 4 mg/mL SDV 1 mL IM ×2 (01:48→03:41)
[2020-07-25 01:51] VITALS: BP 105/67; PULSE 98; RESP 16; O2SAT 96
[2020-07-25 03:39] LABS: Glucose Point of Care 325 mg/dL (70-110)
[2020-07-25] MEDS: clindamycin 150 mg Capsule 300 MG PO (03:40)
[2020-07-25 03:41] VITALS: RESP 18; O2SAT 97
[2020-07-25 03:49] VITALS: BP 116/72; PULSE 104; RESP 17; TEMP 36.8; O2SAT 97
--- NOTE | 2020-07-30 09:10 | PC.NURSE ---
Prescription for Augmentin 875mg 1 tab PO BID #[address] Corona order. Pt also instructed to f/u with PCP in 3-5 days for repeat UA and evaluation.
== END 2020-07-25 03:49 | disposition home or self-care (01) ==
PROVIDERS: Family Medicine; Emergency Provider Physician Assistant; PCP Family Medicine
DX: L03.115 Cellulitis of right lower limb (principal); Z79.4 Long term (current) use of insulin; F17.210 Nicotine dependence, cigarettes, uncomplicated; Z89.612 Acquired absence of left leg above knee
CPT/HCPCS: 12345; 36416; 73700; 80053; 81001; 82962; 85025; 87077; 87086; 87186; 93971; 96372; 99282; 99283; J1815; J2270

== ENCOUNTER → 2020-10-14 14:55 | Outpatient (BNVA) | payer MEDICAID, SELFPAY | PROVIDERS: PCP Physical Medicine & Rehabilitation; Visit Provider Nurse Practitioner | DX: G89.4 Chronic pain syndrome (principal); M54.9 Dorsalgia, unspecified; S78.112A Complete traumatic amputation at level between left hip and knee, initial encounter; X58.XXXA Exposure to other specified factors, initial encounter; F17.210 Nicotine dependence, cigarettes, uncomplicated; Z79.891 Long term (current) use of opiate analgesic | CPT/HCPCS: 99213; 99214 ==

== ENCOUNTER 2020-11-19 19:56 | Emergency (ER) | payer MEDICAID, SELFPAY ==
[2020-11-19 20:07] VITALS: BP 132/91; PULSE 95; RESP 18; TEMP 36.3; O2SAT 100; BMI 29.9
[2020-11-19 20:52] VITALS: PULSE 106
--- NOTE | 2020-11-19 20:56 | XRR_ITS ---
PROCEDURE INFORMATION: Exam: XR Right Toe(s) Exam date and time: 11/19/2020 9:09 PM Age: 40 years old Clinical indication: Pain; Toes; Right; Additional info: RT great toe -wound, type 1 diabetes TECHNIQUE: Imaging protocol: XR Right toes. Views: Minimum 2 views. COMPARISON: CR XR foot RT min 3V* [id number] 05/08/2020 3:51 AM FINDINGS: Bones/joints: Normal. Soft tissues: Soft tissue swelling over the great toe without obvious soft tissue emphysema or osteomyelitis. XR/XR toe RT min 2V [id number] IMPRESSION: Soft tissue swelling over the great toe without obvious soft tissue emphysema or osteomyelitis.
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
[2020-11-19 21:14] VITALS: BP 151/102; PULSE 95; RESP 18; O2SAT 100
[2020-11-19] MEDS: HYDROcodone-acetaminophen 5-325 mg Tablet 1 TAB PO (21:15)
[2020-11-19 21:33] LABS: Basophils # 0.1 10^3/uL (0.0-0.1); Eosinophils # 0.2 10^3/uL (0.0-0.8); Eosinophils % 2.5 %; Hematocrit 46.3 % (37.0-47.0); Hemoglobin 15.4 g/dL (11.5-15.3); Lymphocytes # 2.7 10^3/uL (0.8-4.8); Lymphocytes % 37.9 %; Mean Corpuscular HGB Conc 33.3 g/dL (30.0-36.0); Mean Corpuscular Hemoglobin 27.5 pg (28.0-34.0); Mean Corpuscular Volume 82.5 fL (81-99); Mean Platelet Volume 10.6 fL (7.4-10.4); Monocytes # 0.3 10^3/uL (0.2-0.9); Monocytes % 4.5 %; Neutrophils # 3.83 10^3/uL (1.8-7.7); Neutrophils % 53.5 %; Nucleated Red Blood Cells % 0 %; Platelet Count 283 10^3/cmm (130-400); Red Blood Count 5.61 10^6/uL (4.1-5.3); Red Cell Distribution Width 12.2 % (12.1-15.1); White Blood Count 7.2 10^3/uL (4.0-10.0)
[2020-11-19 21:57] LABS: Alanine Aminotransferase 17 U/L (0-33); Albumin Level 3.5 g/dL (3.5-5.2); Alkaline Phosphatase 103 IU/L (35-105); Aspartate Amino Transferase 15 U/L (0-32); Blood Urea Nitrogen 18 mg/dL (6-20); Calcium 9.5 mg/dL (8.5-10.5); Carbon Dioxide 27 mmol/L (22-29); Chloride 93 mmol/L (98-107); Globulin 3.7 g/dL (1.3-4.6); Glomerular Filtration Rate 92.7 mL/min (90-130); Glucose 486 mg/dL (65-115); Lactate (Lactic Acid level) 1.9 mmol/L (0.5-2.2); Osmolality Calculated 297 mOsm/kg (285-295); Sodium 132 mmol/L (136-145); Total Bilirubin 0.2 mg/dL (0.15-1.2); Total Protein 7.2 g/dL (6.6-8.7)
[2020-11-19 22:02] VITALS: BP 100/76; PULSE 100; RESP 18; O2SAT 100
[2020-11-19 22:53] VITALS: RESP 18; O2SAT 100
[2020-11-19] MEDS: oxyCODONE-APAP 5-325 mg Tablet 1 TAB PO (22:53)
[2020-11-19] MEDS: mupirocin oint 22 gm 1 APPLIC TOPICAL (22:54)
[2020-11-19] MEDS: clindamycin 150 mg Capsule 300 MG PO (22:55)
[2020-11-19 23:02] VITALS: BP 107/79; PULSE 105; RESP 18; O2SAT 98
--- NOTE | 2020-11-20 11:07 | DCPLANNER ---
Addendum entered by Katie Germain 11/24/20 09:02: retail manager in training called [facility] again today for referral. retail manager in training faxed patients information to the clinic for review. retail manager in training was told that patients information would be reviewed and clinic will call patient with appointment information. Original Note: retail manager in training had message to schedule a follow up appointment for patient [facility] [place] [facility] retail manager in training called the [facility], at [phone]. retail manager in training was unable to speak with anyone at this time, a voicemail was left for clinic to call renal case manager back.
--- NOTE | 2020-12-03 08:53 | DCPLANNER ---
Patient had a follow up appointment scheduled with [facility] - patient did attend appointment.
== END 2020-11-19 23:03 | disposition home or self-care (01) ==
PROVIDERS: Emergency Provider Nurse Practitioner Family; PCP Physical Medicine & Rehabilitation
DX: L03.031 Cellulitis of right toe (principal); M86.8X8 Other osteomyelitis, other site; Z79.02 Long term (current) use of antithrombotics/antiplatelets; Z79.82 Long term (current) use of aspirin; Z79.4 Long term (current) use of insulin; Z89.612 Acquired absence of left leg above knee; F17.210 Nicotine dependence, cigarettes, uncomplicated
CPT/HCPCS: 12345; 73660; 80053; 83605; 85025; 87070; 87075; 87077; 87186; 87205; 99281; 99283

== ENCOUNTER 2020-11-22 23:09 | Emergency (ER) | payer MEDICAID, SELFPAY ==
[2020-11-22 23:29] VITALS: BP 128/94; PULSE 96; RESP 16; TEMP 37; O2SAT 96; BMI 27.8
[2020-11-23 00:27] VITALS: PULSE 78
--- NOTE | 2020-11-23 00:28 | W.ED.EXTPRO ---
HPI - Extremity Problem General: Chief complaint: Extremity Problem,Nontraumatic Stated complaint: LEG PAIN, SWELLING, DISCOLORATION Time Seen by Provider: 11/23/20 00:27 Source: patient Mode of arrival: ambulatory Limitations: no limitations History of Present Illness: HPI Narrative: 40-year-old female comes in with infection to the great toe of the right foot. Patient is a type I diabetic with amputation of the left lower extremity. Patient is worried about osteomyelitis and losing the right foot. Patient was seen on the and was started on clindamycin. Patient states that she was only able to take 4 doses of clindamycin due to her causing her to feel real sick at her stomach. Patient comes in today for concern of worsening infection. Patient reports worsening pain and increasing redness. Review of Systems General: Reports: 10 or more systems reviewed and unremarkable except in HPI and below Skin/Breast: Reports: changing lesions [facility] ED PFSH: Medical History Above knee amputation of left lower extremity Chronic pain syndrome Current every day smoker Encounter for long-term use of opiate analgesic Opioid contract exists Surgical History Hx of above knee amputation LEFT KNEE Hx of section X4 Family History Other Diabetes Social History Smoking and tobacco status: current every day smoker cigarettes Packs smoked per day: 0.5 Alcohol intake: never History of recent travel: No Female Reproductive History: Date of last menstrual period: 04/20/20 Physical Exam Const: COMMON NORMALS: no acute distress and patient oriented x3 GENERAL APPEARANCE: cooperative HENMT: COMMON NORMALS: normocephalic and Normal external nose present HEAD & SCALP: normal to inspection and normocephalic NOSE: Normal external nose present MOUTH: Normal oral and palatal mucosa present Eye: GENERAL EYE: appearance normal, both eyes and all related structures Neck/C-Spine: COMMON NORMALS: full ROM Chest: COMMONS NORMALS: normal inspection of the chest Resp: COMMON NORMALS: normal respiratory effort EFFORT & INSPECTION: Yes able to speak in complete sentences Cardio: COMMON NORMALS: regular rate and regular rhythm RATE: regular rate RHYTHM: regular rhythm GI: COMMON NORMALS: non-tender Back/Pelvis: COMMON NORMALS: thoracic and lumbar spine normal to inspection Extremity: NARRATIVE EXTREMITY EXAM: Purulent wound to the distal tip of the first digit on the right foot. Redness is noted to the big toe of the right foot. Decreased pulse sensation is noted to the foot. Neuro: COMMON NORMALS: patient oriented x3 and moves all extremities Psych: COMMON NORMALS: mental status grossly normal and cooperative Skin: COMMON NORMALS: no rashes or lesions noted GENERAL SKIN EXAM: no rashes or lesions noted Course Vital Signs: Vital signs: Vital Signs Temperature 98.6 F 11/22/20 23:29 Pulse Rate 72 11/23/20 01:15 Respiratory Rate 18 11/23/20 01:15 Blood Pressure 128/94 11/22/20 23:29 Pulse Oximetry 98 11/23/20 01:15 MDM - Extremity (Nontraumatic) MDM Narrative: Medical decision making narrative: Patient comes in tonight for concerns of infection to the great toe of the right foot. Patient has been on clindamycin but was unable to tolerate the medication so she is only taking 4 doses. I reviewed the record and noted that patient had a x-ray done that showed no osteomyelitis or gas gangrene at this time. Laboratory values were unremarkable. Exam today notes some purulent drainage at the distal tip of the great toe with some surrounding tissue redness approximately encompassing the distal part of the toe. Differential diagnosis includes cellulitis, gangrene, osteomyelitis. Laboratory values noted the mild hyponatremia although this probably corrects to normal with her blood glucose being at 339. White count was okay at 8.6. Alkaline phos was normal. Lactate was normal. CT scan of the foot noted no osteomyelitis although cannot rule out. My plan today is to start patient on Levaquin 500 mg p.o. daily for next 10 days. Patient be given IV dose tonight to see if we can help get this infection under control patient also probably needs to follow-up with wound care for further treatment. Lab Data: Labs: Lab Results 11/23/20 11/23/20 11/23/20 Range/Units 01:11 01:11 01:11 WBC 8.6 (4.0-10.0) 10^3/ uL RBC 5.46 H (4.1-5.3) 10^6/u L Hgb 15.1 (11.5-15.3) g/dL Hct 43.0 (37.0-47.0) % MCV 78.8 L (81-99) fL MCH 27.7 L (28.0-34.0) pg MCHC 35.1 (30.0-36.0) g/dL RDW 12.3 (12.1-15.1) % Plt Count 346 (130-400) 10^3/c mm MPV 10.1 (7.4-10.4) fL Neut % (Auto) 48.3 % Lymph % (Auto) 41.5 % [place] % (Auto) 6.0 % Eos % (Auto) 2.6 % Baso % (Auto) 0.8 % Neut # (Auto) 4.16 (1.8-7.7) 10^3/u L Lymph # (Auto) 3.6 (0.8-4.8) 10^3/u L [place] # (Auto) 0.5 (0.2-0.9) 10^3/u L Eos # (Auto) 0.2 (0.0-0.8) 10^3/u L Baso # (Auto) 0.1 (0.0-0.1) 10^3/u L Nucleated RBC % (a uto) 0 % Nucleated RBCs # 0.0 /100WBC Sodium 129 L (136-145) mmol/L Potassium 3.5 (3.5-5.1) mmol/L Chloride 93 L (98-107) mmol/L Carbon Dioxide 27 (22-29) mmol/L Anion Gap 12.5 (5-19) BUN 19 (6-20) mg/dL Creatinine 0.6 (0.5-0.9) mg/dL GFR Calculation 110.7 (90-130) mL/min Glucose 339 H (65-115) mg/dL Calculated Osmolal ity 284 L (285-295) mOsm/k g Lactic Acid 1.4 (0.5-2.2) mmol/L Calcium 9.3 (8.5-10.5) mg/dL Total Bilirubin 0.2 (0.15-1.2) mg/dL AST 17 (0-32) U/L ALT 21 (0-33) U/L Alkaline Phosphata se 98 (35-105) IU/L Total Protein 6.9 (6.6-8.7) g/dL Albumin 3.7 (3.5-5.2) g/dL Globulin 3.2 (1.3-4.6) g/dL Discharge Plan Discharge Patient Disposition: Home Clinical Impression: Cellulitis of toe, right Condition: Stable Prescriptions: New levofloxacin 500 mg tablet 500 mg PO DAILY 10 Days Qty: 10 RF: 0 No Action Toujeo Max U-300 SoloStar 300 unit/mL (3 mL) insulin pen 30 unit SUBCUT DAILY RF: 0 hydrocodone-acetaminophen 7.5-325 mg tablet 1 tab PO QID PRN (Reason: pain) 30 Days Qty: 120 RF: 0 gabapentin 600 mg tablet 600 mg PO TID PRN (Reason: pain) 30 Days Qty: 90 RF: 1 clopidogrel [Plavix] 75 mg tablet 75 mg PO DAILY RF: 0 insulin lispro [Humalog KwikPen Insulin] 100 unit/mL insulin pen 5 unit SUBCUT TID RF: 0 Lantus Solostar U-100 Insulin 100 unit/mL (3 mL) insulin pen 10 unit SUBCUT BID RF: 0 atorvastatin 40 mg tablet 40 mg PO DAILY RF: 0 lisinopril 2.5 mg tablet 2.5 mg PO DAILY RF: 0 fluoxetine 10 mg capsule 10 mg PO DAILY RF: 0 Tradjenta 5 mg tablet 5 mg PO DAILY RF: 0 docusate sodium [DOK] 100 mg capsule 100 mg PO BID RF: 0 cyclobenzaprine 10 mg tablet 10 mg PO TID RF: 0 aspirin 81 mg tablet,delayed release (DR/EC) 81 mg PO DAILY RF: 0 spironolactone 25 mg tablet 25 mg PO DAILY RF: 0 carvedilol 3.125 mg tablet 3.125 mg PO BID RF: 0 trazodone 50 mg tablet 50 mg PO DAILY RF: 0 furosemide [Lasix] 20 mg tablet 10 mg PO QAM RF: 0 Atrovent HFA 17 mcg/actuation HFA aerosol inhaler 1 puff inhalation QID RF: 0 doxylamine-dextromethorphan 6.25-15 mg/15 mL solution 15 ml PO Q4H PRNRF: 0 hydrocodone-acetaminophen 7.5-325 mg tablet 1 tab PO QID PRN (Reason: pain) 30 Days Qty: 120 RF: 0 tramadol 50 mg tablet 100 mg PO QID PRN (Reason: pain) 30 Days Qty: 240 RF: 0 Combivent Respimat 20-100 mcg/actuation mist 2 puff INHALATION Q6H PRNRF: 0 albuterol sulfate 90 mcg/actuation aerosol powdr breath activated 2 inh INHALATION Q6H PRNRF: 0 mupirocin 2 % ointment 1 applic topical BID Qty: 22 RF: 0 clindamycin HCl 300 mg capsule 300 mg PO QID 7 Days Qty: 28 RF: 0 Discharge Orders: Discharge ED (Routine); Ordered 11/23/20 Ordered By: Arturo Hart Referrals: Chidi Garibay [Primary Care Provider] - Discharge Diet: Usual diet Discharge Activity: Increase activity as tolerated Patient Instructions: Wound Infection (ED) Activity Restrictions/Additional Instructions: Antibiotics as directed. Follow-up with primary care in three to five days for recheck. Return to ER for new concerns or recheck if unable to follow-up with primary care Coding Level of Care Code ED Quick Mixer Operator for Chg Fwd Exam Comprehensive
--- NOTE | 2020-11-23 00:36 | CTR_ITS ---
PROCEDURE INFORMATION: Exam: CT Right Lower Extremity Without Contrast, Foot Exam date and time: 11/23/2020 12:49 AM Age: 40 years old Clinical indication: Condition or disease; Other: Osteomyelitis first toe TECHNIQUE: Imaging protocol: CT of the Right lower extremity without contrast was performed. Exam focused on the foot. Radiation optimization: All CT scans at this facility use at least one of these dose optimization techniques: automated exposure control; mA and/or kV adjustment per patient size (includes targeted exams where dose is matched to clinical indication); or iterative reconstruction. COMPARISON: CR XR foot RT min 3V* [id number] 05/08/2020 3:51 AM RADIATION DOSE METRICS: Total DLP (mGy-cm): 161.56 FINDINGS: Bones/joints: Normal. No acute fracture or dislocation. Soft tissues: Low attenuation seen within the subcutaneous fat and fascia the 1st digit of the right foot at the level of the interphalangeal joint, findings could represent edematous or inflammatory changes. CT/CT foot RT wo con* [id number] IMPRESSION: 1. There are no acute osseous findings. If clinical suspicion for osteomyelitis continues, further evaluation with pre and post gadolinium MRI imaging of the foot is suggested. 2. There is mild swelling of the 1st digit near the level of the interphalangeal joint. Radiation Dose CTDIVOL = (mGy): DLP = 161.56 (mGy-cm)
[2020-11-23] MEDS: HYDROcodone-acetaminophen 7.5-325 mg Tablet 1 TAB PO (00:46)
[2020-11-23 01:15] VITALS: PULSE 72; RESP 18; O2SAT 98
[2020-11-23 01:23] LABS: Basophils # 0.1 10^3/uL (0.0-0.1); Basophils % 0.8 %; Eosinophils # 0.2 10^3/uL (0.0-0.8); Eosinophils % 2.6 %; Hemoglobin 15.1 g/dL (11.5-15.3); Lymphocytes # 3.6 10^3/uL (0.8-4.8); Lymphocytes % 41.5 %; Mean Corpuscular HGB Conc 35.1 g/dL (30.0-36.0); Mean Corpuscular Hemoglobin 27.7 pg (28.0-34.0); Mean Corpuscular Volume 78.8 fL (81-99); Mean Platelet Volume 10.1 fL (7.4-10.4); Monocytes # 0.5 10^3/uL (0.2-0.9); Neutrophils # 4.16 10^3/uL (1.8-7.7); Neutrophils % 48.3 %; Nucleated Red Blood Cells % 0 %; Platelet Count 346 10^3/cmm (130-400); Red Blood Count 5.46 10^6/uL (4.1-5.3); Red Cell Distribution Width 12.3 % (12.1-15.1); White Blood Count 8.6 10^3/uL (4.0-10.0)
[2020-11-23 01:41] LABS: Alanine Aminotransferase 21 U/L (0-33); Albumin Level 3.7 g/dL (3.5-5.2); Alkaline Phosphatase 98 IU/L (35-105); Anion Gap 12.5 (5-19); Aspartate Amino Transferase 17 U/L (0-32); Blood Urea Nitrogen 19 mg/dL (6-20); Calcium 9.3 mg/dL (8.5-10.5); Carbon Dioxide 27 mmol/L (22-29); Chloride 93 mmol/L (98-107); Globulin 3.2 g/dL (1.3-4.6); Glomerular Filtration Rate 110.7 mL/min (90-130); Glucose 339 mg/dL (65-115); Osmolality Calculated 284 mOsm/kg (285-295); Potassium 3.5 mmol/L (3.5-5.1); Sodium 129 mmol/L (136-145); Total Bilirubin 0.2 mg/dL (0.15-1.2); Total Protein 6.9 g/dL (6.6-8.7)
[2020-11-23 01:42] LABS: Lactic Sepsis W/Reflex 1.4 mmol/L (0.5-2.2)
[2020-11-23 02:22] VITALS: BP 117/84; PULSE 93; RESP 16; O2SAT 96
[2020-11-23] MEDS: levofloxacin-dextrose 5 % 500 MG/100 ML PREMIX 100 MG IV (02:30)
--- NOTE | 2020-11-24 09:04 | DCPLANNER ---
clinical project manager had message to schedule a follow up appointment for patient with Wound Care. clinical project manager is working on a referral to [facility], from order from previous visit. Patients information has been faxed to [facility].
== END 2020-11-23 03:22 | disposition home or self-care (01) ==
PROVIDERS: Emergency Provider Nurse Practitioner Family; PCP Physical Medicine & Rehabilitation
DX: L03.031 Cellulitis of right toe (principal); Z79.02 Long term (current) use of antithrombotics/antiplatelets; Z79.82 Long term (current) use of aspirin; Z79.4 Long term (current) use of insulin; Z89.612 Acquired absence of left leg above knee; F17.210 Nicotine dependence, cigarettes, uncomplicated
CPT/HCPCS: 12345; 36415; 73700; 80053; 83605; 85025; 87040; 96365; 99283; J1956

== ENCOUNTER 2021-01-03 01:48 | Emergency (ER) | payer MEDICAID, SELFPAY ==
[2021-01-03 01:59] VITALS: BP 163/108; PULSE 94; RESP 18; TEMP 36.6; O2SAT 94; BMI 28.6
--- NOTE | 2021-01-03 02:03 | XRR_ITS ---
PROCEDURE INFORMATION: Exam: XR Left Femur Exam date and time: 01/03/2021 2:07 AM Age: 40 years old Clinical indication: Injury or trauma; Fall; Blunt trauma; Thigh or upper leg; Left; Injury date: Today; Prior surgery; Surgery type: Amputation lower leg TECHNIQUE: Imaging protocol: XR Left femur. Views: 2 views. COMPARISON: CR Femur 2 views LEFT* [id number] 10/29/2019 6:56 PM FINDINGS: Bones/joints: Mid femoral diaphyseal amputation with a smooth appearing distal stump contour, likely long-standing. No acute bony abnormality identified. No destructive bony process identified. Soft tissues: Unremarkable. XR/XR femur LT min 2V* [id number] IMPRESSION: 1. Mid femoral diaphyseal amputation. 2. No acute bony injury identified.
--- NOTE | 2021-01-03 02:09 | ED_ITS ---
HPI - Fall General: Chief Complaint: Fall Stated Complaint: fall/lower extremity pain Time Seen by Provider: 01/03/21 02:06 Source: patient Mode of arrival: wheelchair Limitations: no limitations History of Present Illness: HPI Narrative: Patient is a 40-year-old female who presents to ED today for evaluation of a left leg injury. Patient tells me she has an assist device on her toilet to help with transferring as she has a L AKA. States during transfer she fell and states she landed onto her L stump and her L hip and has had pain since. No other injuries. complaint: fall Onset (ago): hour(s) Fall from: chair (toilet) Fall witnessed: yes, by family Place fall occurred: home Loss of consciousness: None Prolonged down time: no Symptoms prior to fall: none Associated symptoms-after fall: Reports no associated symptoms; Denies headache(s) or neck pain Review of Systems Musc: Reports: extremity pain (L leg) and joint pain (L hip); Denies: neck pain, back pain or extremity swelling Neuro: Denies: headache(s) PFSH ED PFSH: Medical History Above knee amputation of left lower extremity Chronic pain syndrome Current every day smoker Encounter for long-term use of opiate analgesic Opioid contract exists Surgical History Hx of above knee amputation LEFT KNEE Hx of section X4 Family History Other Diabetes Social History Smoking and tobacco status: current every day smoker cigarettes Packs smoked per day: 0.5 Alcohol intake: never History of recent travel: No Female Reproductive History: Date of last menstrual period: 12/27/20 Physical Exam Const: COMMON NORMALS: no acute distress, patient oriented x3, no limitations and alert GENERAL APPEARANCE: cooperative NUTRITIONAL APPEARANCE: obese ORIENTATION/CONSCIOUSNESS: Yes awake, Yes oriented to person, Yes oriented to place and Yes oriented to time HENMT: COMMON NORMALS: normocephalic and atraumatic HEAD & SCALP: normocephalic and atraumatic Neck/C-Spine: CERVICAL SPINE: Yes cervical ROM normal, No pain with cervical ROM, No Cervical spine tenderness and No Paracervical muscle tenderness Chest: COMMONS NORMALS: normal inspection of the chest and normal palpation of entire chest wall Resp: COMMON NORMALS: normal respiratory effort Extremity: GENERAL: Yes normal exam except as noted OTHER: reports TTP posterior L hip and to L AKA stump Neuro: COMMON NORMALS: patient oriented x3 SENSORIUM/ORIENTATION: Yes alert, Yes oriented to person, Yes oriented to place and Yes oriented to time Skin: NARRATIVE SKIN EXAM: no abrasions, lacerations, or ecchymosis noted Course Vital Signs: Vital signs: Vital Signs Temperature 97.8 F 01/03/21 01:59 Pulse Rate 94 01/03/21 01:59 Respiratory Rate 18 01/03/21 01:59 Blood Pressure 163/108 01/03/21 01:59 Pulse Oximetry 94 01/03/21 01:59 MDM - Fall Imaging Data^: XR L femur : My impression: NAD Discharge Plan Discharge Patient Disposition: Home Clinical Impression: Left leg pain Fall Qualifiers: Encounter type: initial encounter Qualified Code(s): W19.XXXA - Unspecified fal l, initial encounter Condition: Stable Prescriptions: No Action Toujeo Max U-300 SoloStar 300 unit/mL (3 mL) insulin pen 30 unit SUBCUT DAILY RF: 0 hydrocodone-acetaminophen 7.5-325 mg tablet 1 tab PO QID PRN (Reason: pain) 30 Days Qty: 120 RF: 0 gabapentin 600 mg tablet 600 mg PO TID PRN (Reason: pain) 30 Days Qty: 90 RF: 1 clopidogrel [Plavix] 75 mg tablet 75 mg PO DAILY RF: 0 insulin lispro [Humalog KwikPen Insulin] 100 unit/mL insulin pen 5 unit SUBCUT TID RF: 0 Lantus Solostar U-100 Insulin 100 unit/mL (3 mL) insulin pen 10 unit SUBCUT BID RF: 0 atorvastatin 40 mg tablet 40 mg PO DAILY RF: 0 lisinopril 2.5 mg tablet 2.5 mg PO DAILY RF: 0 fluoxetine 10 mg capsule 10 mg PO DAILY RF: 0 Tradjenta 5 mg tablet 5 mg PO DAILY RF: 0 docusate sodium [DOK] 100 mg capsule 100 mg PO BID RF: 0 cyclobenzaprine 10 mg tablet 10 mg PO TID RF: 0 aspirin 81 mg tablet,delayed release (DR/EC) 81 mg PO DAILY RF: 0 spironolactone 25 mg tablet 25 mg PO DAILY RF: 0 carvedilol 3.125 mg tablet 3.125 mg PO BID RF: 0 trazodone 50 mg tablet 50 mg PO DAILY RF: 0 furosemide [Lasix] 20 mg tablet 10 mg PO QAM RF: 0 Atrovent HFA 17 mcg/actuation HFA aerosol inhaler 1 puff inhalation QID RF: 0 doxylamine-dextromethorphan 6.25-15 mg/15 mL solution 15 ml PO Q4H PRNRF: 0 hydrocodone-acetaminophen 7.5-325 mg tablet 1 tab PO QID PRN (Reason: pain) 30 Days Qty: 120 RF: 0 tramadol 50 mg tablet 100 mg PO QID PRN (Reason: pain) 30 Days Qty: 240 RF: 0 Combivent Respimat 20-100 mcg/actuation mist 2 puff INHALATION Q6H PRNRF: 0 albuterol sulfate 90 mcg/actuation aerosol powdr breath activated 2 inh INHALATION Q6H PRNRF: 0 mupirocin 2 % ointment 1 applic topical BID Qty: 22 RF: 0 Discharge Orders: Discharge ED (Routine); Ordered 01/03/21 Ordered By: Priyanka Nichole Referrals: Chidi Garibay [Primary Care Provider] - Coding Level of Care Code ED White Work Cleaner for Chg Fwd Exam Detailed
[2021-01-03 02:26] VITALS: RESP 18; O2SAT 96
== END 2021-01-03 02:27 | disposition home or self-care (01) ==
PROVIDERS: Emergency Provider Physician Assistant; PCP Physical Medicine & Rehabilitation
DX: M79.605 Pain in left leg (principal); Z79.02 Long term (current) use of antithrombotics/antiplatelets; Z79.82 Long term (current) use of aspirin; Z79.4 Long term (current) use of insulin; Z89.612 Acquired absence of left leg above knee; F17.210 Nicotine dependence, cigarettes, uncomplicated
CPT/HCPCS: 73552; 99282

== ENCOUNTER 2021-01-04 13:55 | Emergency (ER) | payer MEDICAID, SELFPAY ==
[2021-01-04 14:21] VITALS: BP 163/109; PULSE 118; RESP 14; TEMP 36.4; O2SAT 98; BMI 29.1
[2021-01-04 15:03] VITALS: PULSE 103; RESP 12; O2SAT 99
--- NOTE | 2021-01-04 15:47 | PC.NURSE ---
Read and agree with assessment.
--- NOTE | 2021-01-04 15:55 | PC.NURSE ---
Pt was found in her wheelchair, leaving the ER. Pt stated that she just wanted to go home, take a tramadol, and go to sleep. Pt stated that the doctor had not been in to see her. Pt stated that if we didn't want to see her she would just leave. Pt refused to sign ama paperwork.
--- NOTE | 2021-01-04 16:39 | ED_ITS ---
HPI - Fall General: Chief Complaint: Fall Stated Complaint: ALL OVER BODY PAIN Time Seen by Provider: 01/04/21 15:14 History of Present Illness: HPI Narrative: 40-year-old female presents emergency room complaining of leg pain after a fall. Patient previously had a left [id number] amputation she was transferring to the toilet evidently slipped and fell and had an injury to the stump on the left leg. She was seen a day prior that note was reviewed. I initially had the medical student see the patient and examine her she had presented the patient to me when we returned to the room to see the patient she had left AMA. Laboratory tests and pain medic ations had been ordered based on the medical student's presentation of the case. [facility] ED PFSH: Medical History Above knee amputation of left lower extremity Chronic pain syndrome Current every day smoker Encounter for long-term use of opiate analgesic Opioid contract exists Surgical History Hx of above knee amputation LEFT KNEE Hx of section X4 Family History Other Diabetes Social History Smoking and tobacco status: current every day smoker cigarettes Packs smoked per day: 0.5 Alcohol intake: never History of recent travel: No Female Reproductive History: Date of last menstrual period: 12/27/20 Course Vital Signs: Vital signs: Vital Signs Temperature 97.5 F L 01/04/21 14:21 Pulse Rate 103 H 01/04/21 15:03 Respiratory Rate 12 01/04/21 15:03 Blood Pressure 163/109 01/04/21 14:21 Pulse Oximetry 99 01/04/21 15:03 MDM - Fall MDM Narrative: Medical decision making narrative: Patient left AMA. I was unable to see the patient the time I came to the room she had already left. Discharge Plan Discharge Patient Disposition: Left Against Medical Advice Clinical Impression: Above knee amputation of left lower extremity, Chronic pain syndrome, Left leg pain, Fall Condition: Good Prescriptions: No Action Toujeo Max U-300 SoloStar 300 unit/mL (3 mL) insulin pen 30 unit SUBCUT DAILY RF: 0 hydrocodone-acetaminophen 7.5-325 mg tablet 1 tab PO QID PRN (Reason: pain) 30 Days Qty: 120 RF: 0 gabapentin 600 mg tablet 600 mg PO TID PRN (Reason: pain) 30 Days Qty: 90 RF: 1 clopidogrel [Plavix] 75 mg tablet 75 mg PO DAILY RF: 0 insulin lispro [Humalog KwikPen Insulin] 100 unit/mL insulin pen 5 unit SUBCUT TID RF: 0 Lantus Solostar U-100 Insulin 100 unit/mL (3 mL) insulin pen 10 unit SUBCUT BID RF: 0 atorvastatin 40 mg tablet 40 mg PO DAILY RF: 0 lisinopril 2.5 mg tablet 2.5 mg PO DAILY RF: 0 fluoxetine 10 mg capsule 10 mg PO DAILY RF: 0 Tradjenta 5 mg tablet 5 mg PO DAILY RF: 0 docusate sodium [DOK] 100 mg capsule 100 mg PO BID RF: 0 cyclobenzaprine 10 mg tablet 10 mg PO TID RF: 0 aspirin 81 mg tablet,delayed release (DR/EC) 81 mg PO DAILY RF: 0 spironolactone 25 mg tablet 25 mg PO DAILY RF: 0 carvedilol 3.125 mg tablet 3.125 mg PO BID RF: 0 trazodone 50 mg tablet 50 mg PO DAILY RF: 0 furosemide [Lasix] 20 mg tablet 10 mg PO QAM RF: 0 Atrovent HFA 17 mcg/actuation HFA aerosol inhaler 1 puff inhalation QID RF: 0 doxylamine-dextromethorphan 6.25-15 mg/15 mL solution 15 ml PO Q4H PRNRF: 0 hydrocodone-acetaminophen 7.5-325 mg tablet 1 tab PO QID PRN (Reason: pain) 30 Days Qty: 120 RF: 0 tramadol 50 mg tablet 100 mg PO QID PRN (Reason: pain) 30 Days Qty: 240 RF: 0 Combivent Respimat 20-100 mcg/actuation mist 2 puff INHALATION Q6H PRNRF: 0 albuterol sulfate 90 mcg/actuation aerosol powdr breath activated 2 inh INHALATION Q6H PRNRF: 0 mupirocin 2 % ointment 1 applic topical BID Qty: 22 RF: 0 Referrals: Chidi Garibay [Primary Care Provider] - Coding Level of Care Code ED Plasterer Journeyman for Ember Chamorro
== END 2021-01-04 15:59 | disposition left against medical advice (07) ==
PROVIDERS: Emergency Provider Family Medicine; PCP Physical Medicine & Rehabilitation
DX: G89.4 Chronic pain syndrome (principal); M79.605 Pain in left leg; Z89.612 Acquired absence of left leg above knee; Z79.02 Long term (current) use of antithrombotics/antiplatelets; Z79.82 Long term (current) use of aspirin; Z79.4 Long term (current) use of insulin; F17.210 Nicotine dependence, cigarettes, uncomplicated
CPT/HCPCS: 99281

== ENCOUNTER 2021-02-02 19:18 | Emergency (ER) | payer MEDICAID, SELFPAY ==
[2021-02-02 20:25] VITALS: BP 107/68; PULSE 114; RESP 18; TEMP 37.2; O2SAT 97; BMI 27.4
--- NOTE | 2021-02-02 20:38 | CTR_ITS ---
PROCEDURE INFORMATION: Exam: CT Head Without Contrast Exam date and time: 02/02/2021 8:39 PM Age: 40 years old Clinical indication: Pain; Headache; Additional info: AGARWAL TECHNIQUE: Imaging protocol: Computed tomography of the head without contrast. Radiation optimization: All CT scans at this facility use at least one of these dose optimization techniques: automated exposure control; mA and/or kV adjustment per patient size (includes targeted exams where dose is matched to clinical indication); or iterative reconstruction. COMPARISON: CT head wo con* [id number] 09/02/2019 9:43 AM RADIATION DOSE METRICS: Total DLP (mGy-cm): 893.76 FINDINGS: The ventricles, sulci and basilar cisterns appear normal for the patient's stated age. There is no evidence of mass, hemorrhage or infarct. No extra-axial fluid collections are identified. There is no midline shift. There is no evidence of fracture. The visualized paranasal sinuses are well-aerated. CT/CT head wo con* [id number] IMPRESSION: No evidence for acute infarct, mass or hemorrhage. Radiation Dose CTDIVOL = (mGy): DLP = 893.76 (mGy-cm)
[2021-02-02 20:40] VITALS: BP 139/84; PULSE 116; RESP 16; O2SAT 97
--- NOTE | 2021-02-02 20:41 | ED_ITS ---
HPI - General Adult General: Chief complaint: General Medical Stated complaint: headache x3 days Time Seen by Provider: 02/02/21 20:34 Source: patient Mode of arrival: ambulatory Limitations: no limitations History of Present Illness: HPI narrative: Alina is a 40-year-old female extensive medical history is well-known to the ED. States that over the last 2 days she has been having an increasing headache. States it began gradually and has worsened. Is a posterior headache. She denies any neck stiffness. She states she does have some posterior neck pain as she fell on a tub 5 days ago. She is afebrile here. She has had no vomiting or diarrhea. She rates her headache a 8 out of 10 currently. She does have photophobia. States improved with a dark room. She has had no vomiting or diarrhea. Denies any chest pain. Associated symptoms: Reports headache(s); Deny chest pain, dyspnea, nausea, rash or vomiting Review of Systems Const: Denies: fever(s), chills, body aches or change in appetite Eyes: Denies: blurry vision or eye discomfort ENMT: Denies: throat pain or dental pain Card: Denies: chest pain Resp: Denies: dyspnea GI: Denies: abdominal pain, nausea, vomiting or diarrhea : Denies: dysuria Musc: Denies: neck pain or back pain Skin/Breast: Denies: rash Neuro: Reports: headache(s) Psych: Denies: depression Roscoe/Lymph: Denies: easy bruising All/Imm: Denies: urticaria PFSH ED PFSH: Medical History Above knee amputation of left lower extremity Chronic pain syndrome Current every day smoker Encounter for long-term use of opiate analgesic Opioid contract exists Surgical History Hx of above knee amputation LEFT KNEE Hx of section X4 Family History Other Diabetes Social History Smoking and tobacco status: current every day smoker cigarettes Packs smoked per day: 0.5 Alcohol intake: never History of recent travel: No Female Reproductive History: Date of last menstrual period: 12/27/20 Physical Exam Const: COMMON NORMALS: no acute distress, patient oriented x3 and healthy appearing HENMT: COMMON NORMALS: normocephalic and atraumatic HEAD & SCALP: normoc ephalic and atraumatic Eye: COMMON NORMALS: Equal, round and reactive pupils present and EOMs intact bilaterally PUPIL: Yes Equal, round and reactive pupils present Neck/C-Spine: COMMON NORMALS: full ROM, supple and no meningeal signs Chest: COMMONS NORMALS: normal inspection of the chest and normal palpation of entire chest wall Resp: COMMON NORMALS: normal respiratory effort, No retractions, No use of accessory muscles and clear to auscultation bilaterally AUSCULTATION: clear to auscultation bilaterally Cardio: COMMON NORMALS: regular rate, regular rhythm and No murmurs present (Cardio) RATE: regular rate RHYTHM: regular rhythm GI: COMMON NORMALS: Normal to inspection, nondistended, normoactive bowel sounds present, Soft to palpation, non-tender and no masses PALPATION: Yes Soft to palpation Extremity: COMMON NORMALS: normal to inspection and full ROM Neuro: COMMON NORMALS: patient oriented x3, moves all extremities and no focal motor deficits MENINGEAL SIGNS: Yes no meningeal signs Psych: COMMON NORMALS: mental status grossly normal, Normal thought process present and cooperative THOUGHT PROCESS: Normal thought process present Skin: COMMON NORMALS: no rashes or lesions noted and no wounds GENERAL SKIN EXAM: no rashes or lesions noted Course Vital Signs: Vital signs: Vital Signs Temperature 98.9 F 02/02/21 20:25 Pulse Rate 116 H 02/02/21 20:40 Respiratory Rate 16 02/02/21 20:54 Blood Pressure 139/84 02/02/21 20:40 Pulse Oximetry 97 02/02/21 20:54 MDM - General Adult MDM Narrative: Medical decision making narrative: Alina presents with a headache that is likely a migraine. She is well-appearing here and has no signs of subarachnoid hemorrhage or meningitis. Her headache is resolved with Reglan and Benadryl. She also had some neck pain from a fall on her CT of her C-spine was normal. She is to follow-up with PCP and return if worsening. Imaging Data^: CT Head: Attestation: I personally reviewed and interpreted this imaging study as follows: Radiologist's impression: [address] [place] [address] CT Scan Report Signed Patient: Alina Hewitt Unit #: [id number] : 1980 Age/Sex: 40 / F ADM Date: 02/02/21 Loc: ER Room/Bed: Attending Dr: Ordering Provider/Ordering MD: Jack Cotton MD Date of Service: 02/02/21 Procedure(s): CT head wo con* [id number] Accession Number(s): [id number] Report Number: [id number] PROCEDURE INFORMATION: Exam: CT Head Without Contrast Exam date and time: 02/02/2021 8:39 PM Age: 40 years old Clinical indication: Pain; Headache; Additional info: AGARWAL TECHNIQUE: Imaging protocol: Computed tomography of the head without contrast. Radiation optimization: All CT scans at this facility use at least one of these dose optimization techniques: automated exposure control; mA and/or kV adjustment per patient size (includes targeted exams where dose is matched to clinical indication); or iterative reconstruction. COMPARISON: CT head wo con* [id number] 09/02/2019 9:43 AM RADIATION DOSE METRICS: Total DLP (mGy-cm): 893.76 FINDINGS: The ventricles, sulci and basilar cisterns appear normal for the patient's stated age. There is no evidence of mass, hemorrhage or infarct. No extra-axial fluid collections are identified. There is no midline shift. There is no evidence of fracture. The visualized paranasal sinuses are well-aerated. CT/CT head wo con* [id number] IMPRESSION: No evidence for acute infarct, mass or hemorrhage. Other CT: Radiologist's impression: [facility] [address] [place] [address]. [place] [address] CT Scan Report Signed Patient: Alina Hewitt Unit #: [id number] : 1980 Age/Sex: 40 / F ADM Date: 02/02/21 Loc: ER Room/Bed: Attending Dr: Ordering Provider/Ordering MD: Jack Cotton MD Date of Service: 02/02/21 Procedure(s): CT cervical spin wo con* [id number] Accession Number(s): [id number] Report Number: [id number] PROCEDURE INFORMATION: Exam: CT Cervical Spine Without Contrast Exam date and time: 02/02/2021 8:46 PM Age: 40 years old Clinical indication: Neck pain; Additional info: Fall TECHNIQUE: Imaging protocol: Computed tomography images of the cervical spine without contrast. Radiation optimization: All CT scans at this facility use at least one of these dose optimization techniques: automated exposure control; mA and/or kV adjustment per patient size (includes targeted exams where dose is matched to clinical indication); or iterative reconstruction. COMPARISON: CR Cervical Spine AP/Lat* [id number] 09/24/2019 9:49 PM RADIATION DOSE METRICS: Total DLP (mGy-cm): 736.52 FINDINGS: There is some straightening of the normal cervical lordosis. This may be due to muscle spasm or patient positioning. There is no evidence of fracture. There are no subluxations. The disc spaces are well maintained. The prevertebral soft tissues and the predental space are normal. The spinal canal is widely patent. There is no neuroforaminal stenosis. There is no evidence for traumatic disc protrusion. There is no evidence for epidural hematoma. There is no bony destruction. The skull base is intact. The upper lung matthews are clear. The surrounding soft tissues are unremarkable. CT/CT cervical spin wo con* [id number] IMPRESSION: 1. There is some straightening of the normal cervical lordosis. This may be due to muscle spasm or patient positioning. 2. No evidence of fracture or subluxation of the cervical spine. Discharge Plan Discharge Patient Disposition: Home Clinical Impression: Headache Qualifiers: Headache type: unspecified Headache chronicity pattern: acute headache Intractability: not intractable Qualified Code(s): R51.9 - Headache, unspecified Cervical strain Qualifiers: Encounter type: initial encounter Qualified Code(s): S16.1XXA - Strain of muscle, fascia and tendon at neck level, initial encounter Condition: Stable Prescriptions: No Action Toujeo Max U-300 SoloStar 300 unit/mL (3 mL) insulin pen 30 unit SUBCUT DAILY RF: 0 hydrocodone-acetaminophen 7.5-325 mg tablet 1 tab PO QID PRN (Reason: pain) 30 Days Qty: 120 RF: 0 gabapentin 600 mg tablet 600 mg PO TID PRN (Reason: pain) 30 Days Qty: 90 RF: 1 clopidogrel [Plavix] 75 mg tablet 75 mg PO DAILY RF: 0 insulin lispro [Humalog KwikPen Insulin] 100 unit/mL insulin pen 5 unit SUBCUT TID RF: 0 Lantus Solostar U-100 Insulin 100 unit/mL (3 mL) insulin pen 10 unit SUBCUT BID RF: 0 atorvastatin 40 mg tablet 40 mg PO DAILY RF: 0 lisinopril 2.5 mg tablet 2.5 mg PO DAILY RF: 0 fluoxetine 10 mg capsule 10 mg PO DAILY RF: 0 Tradjenta 5 mg tablet 5 mg PO DAILY RF: 0 docusate sodium [DOK] 100 mg capsule 100 mg PO BID RF: 0 cyclobenzaprine 10 mg tablet 10 mg PO TID RF: 0 aspirin 81 mg tablet,delayed release (DR/EC) 81 mg PO DAILY RF: 0 spironolactone 25 mg tablet 25 mg PO DAILY RF: 0 carvedilol 3.125 mg tablet 3.125 mg PO BID RF: 0 trazodone 50 mg tablet 50 mg PO DAILY RF: 0 furosemide [Lasix] 20 mg tablet 10 mg PO QAM RF: 0 Atrovent HFA 17 mcg/actuation HFA aerosol inhaler 1 puff inhalation QID RF: 0 doxylamine-dextromethorphan 6.25-15 mg/15 mL solution 15 ml PO Q4H PRNRF: 0 hydrocodone-acetaminophen 7.5-325 mg tablet 1 tab PO QID PRN (Reason: pain) 30 Days Qty: 120 RF: 0 tramadol 50 mg tablet 100 mg PO QID PRN (Reason: pain) 30 Days Qty: 240 RF: 0 Combivent Respimat 20-100 mcg/actuation mist 2 puff INHALATION Q6H PRNRF: 0 albuterol sulfate 90 mcg/actuation aerosol powdr breath activated 2 inh INHALATION Q6H PRNRF: 0 mupirocin 2 % ointment 1 applic topical BID Qty: 22 RF: 0 Discharge Orders: Discharge ED (Routine); Ordered 02/02/21 Ordered By: Jack Cotton Referrals: Chidi Garibay [Primary Care Provider] - 1-3 days Discharge Diet: Advance as tolerated Discharge Activity: Resume usual activity Patient Instructions: Acute Headache (ED) Coding Level of Care Code ED Hydroelectric Operator for Chg Fwd Exam Comprehensive
[2021-02-02 20:54] VITALS: RESP 16; O2SAT 97
[2021-02-02] MEDS: morphine 4 mg/mL SDV 1 mL 8 MG IM (20:54)
[2021-02-02] MEDS: metoclopramide 5 mg/mL SDV 2 mL 10 MG IM (20:54)
[2021-02-02] MEDS: diphenhydrAMINE 50 mg/mL SDV 1mL IM (20:55)
[2021-02-02 21:53] VITALS: BP 141/94; RESP 16
== END 2021-02-02 21:54 | disposition home or self-care (01) ==
PROVIDERS: Emergency Provider Emergency Medicine; PCP Physical Medicine & Rehabilitation
DX: R51.9 Headache, unspecified (principal); S16.1XXA Strain of muscle, fascia and tendon at neck level, initial encounter; Z79.02 Long term (current) use of antithrombotics/antiplatelets; Z79.82 Long term (current) use of aspirin; Z79.4 Long term (current) use of insulin; Z89.612 Acquired absence of left leg above knee; F17.210 Nicotine dependence, cigarettes, uncomplicated; W19.XXXA Unspecified fall, initial encounter
CPT/HCPCS: 70450; 72125; 96372; 99283; J1200; J2270; J2765

== ENCOUNTER 2021-02-09 02:37 | Emergency (ER) | payer MEDICAID, SELFPAY ==
[2021-02-09 02:45] VITALS: BP 143/83; PULSE 99; RESP 17; TEMP 36.8; O2SAT 98; BMI 26.6
[2021-02-09 02:49] VITALS: BP 143/83; PULSE 101; RESP 20; O2SAT 97
--- NOTE | 2021-02-09 03:00 | W.ED.EXTPRO ---
HPI - Extremity Problem General: Chief complaint: Extremity Injury, Lower Stated complaint: bleeding in right foot Time Seen by Provider: 02/09/21 02:51 History of Present Illness: HPI Narrative: 40-year-old female comes in with right foot pain. She states approximately 1 hour ago she woke up with the pain. She noticed her foot/toes were bleeding. She denies any specific trauma. She describes it as a sharp pain. MD Complaint: extremity pain Onset (ago): hour(s) (1) Pain Consistency: constant Location: right, lower extremity (Foot) and toe Quality: sharp Radiation: none Relieving factors: nothing Exacerbating factors: range of motion, weight bearing and walking Associated symptoms: Deny chest pain, fever(s), rash or short of breath Context: history of peripheral vascular disease (Previous stent placement) Review of Systems Const: Denies: fever(s) or chills Card: Denies: chest pain Skin/Breast: Reports: erythema, skin pain, skin tenderness and new lesions; Denies: rash or pruritus Endo: Reports: other (Blood sugars have been elevated.) [facility] ED PFSH: Medical History Above knee amputation of left lower extremity Chronic pain syndrome Current every day smoker Encounter for long-term use of opiate analgesic Opioid contract exists Surgical History Hx of above knee amputation LEFT KNEE Hx of section X4 Family History Other Diabetes Social History Smoking and tobacco status: current every day smoker cigarettes Packs smoked per day: 0.5 Alcohol intake: never History of recent travel: No Female Reproductive History: Date of last menstrual period: 01/19/21 Physical Exam Narrative: EXAM NARRATIVE: After discussing the wounds on her right foot the patient does state that she has a rabbit that is not caged and runs free. The wounds are consistant with animal bites such as a rabbit. Const: COMMON NORMALS: no acute distress and patient oriented x3 GENERAL APPEARANCE: cooperative, comfortable and well hydrated NUTRITIONAL APPEARANCE: obese Extremity: COMMON NORMALS: no calf tenderness NARRATIVE EXTREMITY EXAM: Left AKA RIGHT LOWER EXTREMITY: Yes foot & digits OTHER: right toes with apparent bites as follows: #1 - distal bites #2 - distal bites #4 - dorsal bites #5 - distal and dorsal bites right foot with 4 dorsal wounds/bites Neuro: COMMON NORMALS: patient oriented x3 Skin: WOUNDS: Yes wounds noted (wounds appear to be animal/rabbit bites) Course Vital Signs: Vital signs: Vital Signs Temperature 98.3 F 02/09/21 03:42 Pulse Rate 93 02/09/21 03:42 Respiratory Rate 16 02/09/21 03:42 Blood Pressure 131/86 02/09/21 03:42 Pulse Oximetry 93 02/09/21 03:42 Discharge Plan Discharge Patient Disposition: Home Clinical Impression: Rabbit bite Qualifiers: Encounter type: initial encounter Qualified Code(s): W55.81XA - Bitten by other mammals, initial encounter Condition: Stable Prescriptions: New Bactrim DS 800-160 mg tablet 1 tab PO BID Qty: 20 RF: 0 No Action Toujeo Max U-300 SoloStar 300 unit/mL (3 mL) insulin pen 30 unit SUBCUT DAILY RF: 0 hydrocodone-acetaminophen 7.5-325 mg tablet 1 tab PO QID PRN (Reason: pain) 30 Days Qty: 120 RF: 0 gabapentin 600 mg tablet 600 mg PO TID PRN (Reason: pain) 30 Days Qty: 90 RF: 1 clopidogrel [Plavix] 75 mg tablet 75 mg PO DAILY RF: 0 insulin lispro [Humalog KwikPen Insulin] 100 unit/mL insulin pen 5 unit SUBCUT TID RF: 0 Lantus Solostar U-100 Insulin 100 unit/mL (3 mL) insulin pen 10 unit SUBCUT BID RF: 0 atorvastatin 40 mg tablet 40 mg PO DAILY RF: 0 lisinopril 2.5 mg tablet 2.5 mg PO DAILY RF: 0 fluoxetine 10 mg capsule 10 mg PO DAILY RF: 0 Tradjenta 5 mg tablet 5 mg PO DAILY RF: 0 docusate sodium [DOK] 100 mg capsule 100 mg PO BID RF: 0 cyclobenzaprine 10 mg tablet 10 mg PO TID RF: 0 aspirin 81 mg tablet,delayed release (DR/EC) 81 mg PO DAILY RF: 0 spironolactone 25 mg tablet 25 mg PO DAILY RF: 0 carvedilol 3.125 mg tablet 3.125 mg PO BID RF: 0 trazodone 50 mg tablet 50 mg PO DAILY RF: 0 furosemide [Lasix] 20 mg tablet 10 mg PO QAM RF: 0 Atrovent HFA 17 mcg/actuation HFA aerosol inhaler 1 puff inhalation QID RF: 0 doxylamine-dextromethorphan 6.25-15 mg/15 mL solution 15 ml PO Q4H PRNRF: 0 hydrocodone-acetaminophen 7.5-325 mg tablet 1 tab PO QID PRN (Reason: pain) 30 Days Qty: 120 RF: 0 tramadol 50 mg tablet 100 mg PO QID PRN (Reason: pain) 30 Days Qty: 240 RF: 0 Combivent Respimat 20-100 mcg/actuation mist 2 puff INHALATION Q6H PRNRF: 0 albuterol sulfate 90 mcg/actuation aerosol powdr breath activated 2 inh INHALATION Q6H PRNRF: 0 mupirocin 2 % ointment 1 applic topical BID Qty: 22 RF: 0 Discharge Orders: Discharge ED (Routine); Ordered 02/09/21 Ordered By: Ranjit Brenner Referrals: Chidi Garibay [Primary Care Provider] - Discharge Diet: Usual diet Discharge Activity: Resume usual activity Patient Instructions: Opioid Safety Activity Restrictions/Additional Instructions: Keep your right foot elevated. Limit bearing weight on your right foot. Change the dressing daily. Apply triple antibiotic to the wounds daily. Multimedia Services Coordinator to contact you to find a Primary Care Provider Coding Level of Care Code ED Cloth Printer Helper for Ember Fwlucia Exam Expanded Problem Focused
--- NOTE | 2021-02-09 03:12 | PC.NURSE ---
Patient foot soaked in sterile water and cleaned. The great toe and pinky toe look like the skin has been chewed on by a small animal. Patient also has several other lacerations on top of foot. Patient states she has a rabbit that is not caged up at night.
[2021-02-09] MEDS: acetaminophen 325 mg Tablet PO (03:19)
--- NOTE | 2021-02-09 03:30 | PC.NURSE ---
Patient wounds irrigated with sterile water. Triple antibiotic ointment applied then telfa dressing applied to toes and wrapped with coban. Wounds on top of feet cleaned with sterile water, triple antibiotic applied and bandaids applied.
[2021-02-09] MEDS: neomycin-poly-bacitracin oint 0.9 gm Pkt 1 APPLIC TOPICAL (03:34)
[2021-02-09] MEDS: sulfamethoxazole-trimeth DS 160-800 mg Tablet 1 TAB PO (03:34)
[2021-02-09 03:42] VITALS: BP 131/86; PULSE 93; RESP 16; TEMP 36.8; O2SAT 93
--- NOTE | 2021-02-09 13:31 | DCPLANNER ---
business intelligence manager had message to speak with patient about getting established with a primary care physician. business intelligence manager called phone number [phone], unable to speak with patient at this time and unable to leave a voicemail.
== END 2021-02-09 03:42 | disposition home or self-care (01) ==
PROVIDERS: Emergency Provider Emergency Medicine; PCP Physical Medicine & Rehabilitation
DX: S91.159A Open bite of unspecified toe(s) without damage to nail, initial encounter (principal); W55.81XA Bitten by other mammals, initial encounter; Z89.612 Acquired absence of left leg above knee; F17.210 Nicotine dependence, cigarettes, uncomplicated; Z79.02 Long term (current) use of antithrombotics/antiplatelets; Z79.82 Long term (current) use of aspirin; Z79.4 Long term (current) use of insulin
CPT/HCPCS: 99283